=== PATIENT | female | born 1960 | race Caucasian/White ===

== ENCOUNTER 2016-12-10 08:05 | Outpatient (CLI) | payer OTHER | END 2016-12-10 08:06 | disposition home or self-care (01) | DX: Z00.00 Encounter for general adult medical examination without abnormal findings (principal); E55.9 Vitamin D deficiency, unspecified; Z79.899 Other long term (current) drug therapy; E78.2 Mixed hyperlipidemia ==

== ENCOUNTER 2016-12-27 09:10 | Outpatient (CLI) | payer OTHER | END 2016-12-27 09:11 | disposition home or self-care (01) | DX: Z12.31 Encounter for screening mammogram for malignant neoplasm of breast (principal) ==

== ENCOUNTER 2017-01-04 17:12 | Emergency (ER) | payer OTHER ==
[2017-01-04 17:31] VITALS: BP 138/76
[2017-01-04] MEDS ORDERED: oxyCOD/ACETAMIN 5 MG/325 MG TABLET PO STA (17:42)
[2017-01-04] MEDS ORDERED: HYDROcod/ACETAM 5/325 MG TABLET ONE (17:43)
--- NOTE | 2017-01-04 17:43 | ED Physician Documentation ---
History of Present Illness - Stated complaint Stated Complaint: L FOOT PX - Chief complaint Chief Complaint: General - History obtained from History obtained from: Patient - History of Present Illness Timing: Today (She has diabetic neuropathy, starting today she complains of pain without specific trauma to the medial foot, first metatarsal and forefoot area. It hurts to walk and bear weight.) Review of Systems Constitutional: denies: Fever, Chills GI: denies: Abdominal Pain, Nausea, Vomiting Skin: reports: Reviewed and negative PD PAST MEDICAL HISTORY - Past Medical History Cardiovascular: Hypertension, High cholesterol Respiratory: None Neuro: Peripheral neuropathy Endocrine/Autoimmune: Type 2 diabetes GI: None HOMEOPATHIC DOCTOR: None : None HEENT: None Psych: Depression, Anxiety, Post traumatic stress disorder Musculoskeletal: Osteoarthritis, Chronic back pain Derm: None - Past Surgical History Past Surgical History: Yes General: Cholecystectomy Ortho: Other /HOMEOPATHIC DOCTOR: section, Tubal ligation, Hysterectomy HEENT: Tonsil/Adenoidectomy - Present Medications Home Medications: Ambulatory Orders Medication Instructions Recorded Confirmed Insulin Glargine,Hum.rec.anlog 46 - 60 units SQ QPM 01/25/16 01/04/17 [Lantus] Insulin Lispro [Humalog Kwikpen 2 - 14 unit SQ TIDWM 06/28/16 01/04/17 U-100] Lisinopril 10 mg PO DAILY 01/04/17 01/04/17 Oxycodone HCl/Acetaminophen 1 - 2 tab PO Q4H PRN #10 tablet 01/04/17 [Percocet 5-325 mg Tablet] Simvastatin 10 mg PO DAILY 01/04/17 01/04/17 buPROPion [Wellbutrin Xl] 150 mg PO DAILY 01/04/17 01/04/17 - Allergies Allergies/Adverse Reactions: Allergies Allergy/AdvReac Type Severity Reaction Status Date / Time cefaclor [From Ceclor] Allergy Severe Unknown Verified 08/08/16 15:12 cephalexin monohydrate * Allergy Unknown Verified 08/08/16 15:12 [From Keflex] codeine Allergy Unknown Verified 08/08/16 15:12 hydrocodone bitartrate * Allergy Unknown Verified 08/08/16 15:12 [From Vicodin] Penicillins Allergy Unknown Verified 08/08/16 15:12 Tetanus Vaccines and Toxoid Allergy Respiratory Verified 08/08/16 15:12 [Tetanus Vaccines & Toxoid] hydromorphone HCl * AdvReac Unknown Verified 08/08/16 15:12 [From Dilaudid] - Social History Does the pt smoke?: Yes Smoking Status: Current some day smoker Does the pt drink ETOH?: No Does the pt have substance abuse?: No - Immunizations Immunizations are current?: No - POLST Patient has POLST: No PD ED PE NORMAL - Vitals Vital signs reviewed: Yes - General General: Alert and oriented X 3, No acute distress - Extremities Extremities: Other (Foot is warm and well perfused without evidence of infection or cellulitis. There is mild tenderness in the area of the mid forefoot and proximal second metatarsal or so without obvious deformity.) - Neuro Neuro: Alert and oriented X 3, Normal speech - Psych Psych: Normal mood, Normal affect Results - Vitals Vitals: Vital Signs - 24 hr 01/04/17 17:28 Temperature 37.0 C Heart Rate 97 Respiratory 16 Rate Blood Pressure 138/76 H O2 Saturation 96 Oxygen O2 Source Room air - Rads (name of study) L foot 3v Radiology: EMP read contemporaneously (normal) PD MEDICAL DECISION MAKING - ED course ED course: 56-year-old woman presents with acute right foot pain, no evidence of abnormality on x-ray. No evidence of infection clinically. She does have diabetic neuropathy, seems atypical for her flare, could have sprained it without memory of it?. Departure - Departure Disposition: 01 Home, Self Care Clinical Impression: Right foot pain Diabetic neuropathy Qualifiers: Diabetes mellitus type: type 2 Diabetes mellitus complication detail: diabetic polyneuropathy Qualified Code(s): E11.42 - Type 2 diabetes mellitus with diabetic polyneuropathy Condition: Good Record reviewed to determine appropriate education?: Yes Instructions: ED Acute Pain [facility] Follow-Up: Ashwini Cabrera DPM [Provider Admit Priv/Credential] - Within 1 week Prescriptions: Oxycodone HCl/Acetaminophen [Percocet 5-325 mg Tablet] 1 - 2 tab PO Q4H PRN #10 tablet PRN Reason: Pain Comments: Your blood pressure was elevated today on check in to the emergency department. This does not mean that you have hypertension, it is a common phenomenon to check into the emergency department and have elevated blood pressure. I recommend that you see your primary care physician within the week to have it rechecked when you're feeling better.
[2017-01-04] MEDS ORDERED: oxyCOD/ACETAMIN 5 MG/325 MG TABLET PO ONE (17:45)
--- NOTE | 2017-01-04 18:12 | XRAY Preliminary Report ---
Exam: XR Foot 3 View LT IMPRESSION: 1. Soft tissue swelling. 2. Other chronic findings. [facility] SITE ID: [id number]
--- NOTE | 2017-01-04 18:16 | XRAY Report ---
EXAM: LEFT FOOT RADIOGRAPHY EXAM DATE: 01/04/2017 05:57 PM. CLINICAL HISTORY: Foot pain. COMPARISON: 12/11/2015. TECHNIQUE: 3 views. FINDINGS: Bones: Small plantar and tiny posterior calcaneal spurs. No definite fracture or other bone lesion. Joints: Moderate degenerative changes at the first TMT level. Soft Tissues: Generalized soft tissue swelling. IMPRESSION: 1. Soft tissue swelling. 2. Chronic findings. [facility] Referring Provider Line: [phone] SITE ID: [id number]
== END 2017-01-04 18:29 | disposition home or self-care (01) ==
LOC: ED 17:12
DX: M79.671 Pain in right foot (principal); E11.42 Type 2 diabetes mellitus with diabetic polyneuropathy; Z79.4 Long term (current) use of insulin; I10 Essential (primary) hypertension; M19.90 Unspecified osteoarthritis, unspecified site; E78.00 Pure hypercholesterolemia, unspecified; F17.200 Nicotine dependence, unspecified, uncomplicated
CPT/HCPCS: 73630; 99283; A9270

== ENCOUNTER 2017-01-06 08:00 | Outpatient (CLI) | payer OTHER ==
[2017-01-06 10:00] LABS: BASOPHILS # (AUTO) 0.1 10^3/uL (0.0-0.1); BASOPHILS % (AUTO) 1.1 %; EOSINOPHILS # (AUTO) 0.2 10^3/uL (0.0-0.7); EOSINOPHILS % (AUTO) 1.7 %; HGB - HEMOGLOBIN 14.6 g/dL (12.0-16.0); LYMPHOCYTES % (AUTO) 31.8 %; MEAN CORPUSCULAR HEMOGLOBIN 29.3 pg (27.0-31.0); MEAN CORPUSCULAR HGB CONC 33.8 g/dL (32.0-36.0); MEAN CORPUSCULAR VOLUME 86.7 fL (81.0-99.0); MEAN PLATELET VOLUME 9.3 fL (7.9-10.8); MONOCYTES # (AUTO) 0.8 10^3/uL (0.0-1.0); NEUTROPHILS # (AUTO) 7.4 10^3/uL (1.5-6.6); NEUTROPHILS % (AUTO) 59.4 %; RED BLOOD COUNT 4.96 10^6/uL (4.20-5.40); RED CELL DISTRIBUTION WIDTH 14.1 % (12.0-15.0); UNCORRECTED WHITE BLOOD COUNT 12.5 x10^3/uL; WHITE BLOOD COUNT 12.5 x10^3/uL (4.8-10.8)
== END 2017-01-06 08:01 | disposition home or self-care (01) ==
LOC: LAB.R 08:00
PROVIDERS: ATTEND Physician Assistant Medical
DX: M79.672 Pain in left foot (principal); R60.9 Edema, unspecified
CPT/HCPCS: 84550; 85025; 85651; 86140

== ENCOUNTER 2017-01-31 06:08 | Day surgery (SDC) | payer OTHER ==
[2017-01-31] MEDS ORDERED: LACTATED RINGERS 1,000 ML IV ONE (07:11)
[2017-01-31] MEDS ORDERED: ONDANSETRON 4 MG/2 ML VIAL IVP ONE (07:46)
[2017-01-31] MEDS ORDERED: MIDAZOLAM 2 MG/2 ML VIAL IVP ONE (07:46)
[2017-01-31] MEDS ORDERED: fentaNYL 100 MCG/2 ML VIAL IVP ONE (07:46)
[2017-01-31 08:55] VITALS: BP 117/68
== END 2017-01-31 06:09 | disposition home or self-care (01) ==
LOC: SDS 06:08
PROVIDERS: ATTEND Surgery
PROC: 0DBN8ZZ Excision of Sigmoid Colon, Via Natural or Artificial Opening Endoscopic (ICD-10-PCS; principal; 2017-01-31 07:30)
DX: Z12.11 Encounter for screening for malignant neoplasm of colon (principal); D12.5 Benign neoplasm of sigmoid colon; K64.8 Other hemorrhoids; K57.30 Diverticulosis of large intestine without perforation or abscess without bleeding; E11.9 Type 2 diabetes mellitus without complications; I10 Essential (primary) hypertension; F17.210 Nicotine dependence, cigarettes, uncomplicated; E66.9 Obesity, unspecified; Z68.42 Body mass index [BMI] 45.0-49.9, adult; F32.9 Major depressive disorder, single episode, unspecified; F41.9 Anxiety disorder, unspecified
CPT/HCPCS: 45385; J7120; 88305

== ENCOUNTER 2017-03-05 12:39 | Outpatient (CLI) | payer OTHER ==
--- NOTE | 2017-03-05 18:09 | XRAY Report ---
TWO VIEW THORACIC SPINE: 03/05/2017 CLINICAL INDICATION: Pain. Frontal and lateral views of the thoracic spine demonstrate degenerative disk disease, with minimal d extroscoliosis. There is no evidence of compression fracture. No paraspinal hematoma is seen. IMPRESSION: DEGENERATIVE CHANGES, WITH MINIMAL DEGENERATIVE DEXTROSCOLIOSIS. JOB #: [id number] EXT JOB #:[id number]
== END 2017-03-05 12:40 | disposition home or self-care (01) ==
LOC: DI 12:39
PROVIDERS: ATTEND Physician Assistant Medical
DX: M51.34 Other intervertebral disc degeneration, thoracic region (principal); M41.54 Other secondary scoliosis, thoracic region
CPT/HCPCS: 72070

== ENCOUNTER 2017-03-11 07:56 | Outpatient (CLI) | payer OTHER ==
[2017-03-11 14:33] LABS: BASOPHILS # (AUTO) 0.1 10^3/uL (0.0-0.1); BASOPHILS % (AUTO) 0.8 %; EOSINOPHILS # (AUTO) 0.3 10^3/uL (0.0-0.7); EOSINOPHILS % (AUTO) 2.1 %; HCT - HEMATOCRIT 45.2 % (37.0-47.0); HGB - HEMOGLOBIN 14.8 g/dL (12.0-16.0); LYMPHOCYTES % (AUTO) 33.7 %; MEAN CORPUSCULAR HEMOGLOBIN 29.1 pg (27.0-31.0); MEAN CORPUSCULAR HGB CONC 32.8 g/dL (32.0-36.0); MEAN CORPUSCULAR VOLUME 88.8 fL (81.0-99.0); MEAN PLATELET VOLUME 9.9 fL (7.9-10.8); MONOCYTES # (AUTO) 0.9 10^3/uL (0.0-1.0); MONOCYTES % (AUTO) 5.7 %; NEUTROPHILS # (AUTO) 8.6 10^3/uL (1.5-6.6); NEUTROPHILS % (AUTO) 57.7 %; NUCLEATED RED BLOOD CELLS AUTO 0.1 /100WBC; RED CELL DISTRIBUTION WIDTH 14.1 % (12.0-15.0); UNCORRECTED WHITE BLOOD COUNT 14.9 x10^3/uL; WHITE BLOOD COUNT 14.9 x10^3/uL (4.8-10.8)
[2017-03-11 15:10] LABS: HEMOGLOBIN A1C 1.42 g/dL
== END 2017-03-11 07:57 | disposition home or self-care (01) ==
LOC: LAB.R 07:56
PROVIDERS: ATTEND Physician Assistant Medical
DX: E11.65 Type 2 diabetes mellitus with hyperglycemia (principal); D72.820 Lymphocytosis (symptomatic); Z79.899 Other long term (current) drug therapy
CPT/HCPCS: 82947; 83036; 85025

== ENCOUNTER 2017-04-30 08:01 | Outpatient (CLI) | payer OTHER ==
[2017-04-30 21:28] LABS: BASOPHILS # (AUTO) 0.1 10^3/uL (0.0-0.1); BASOPHILS % (AUTO) 0.7 %; EOSINOPHILS # (AUTO) 0.2 10^3/uL (0.0-0.7); EOSINOPHILS % (AUTO) 1.7 %; HCT - HEMATOCRIT 48.4 % (37.0-47.0); HGB - HEMOGLOBIN 15.4 g/dL (12.0-16.0); LYMPHOCYTES # (AUTO) 4.8 10^3/uL (1.5-3.5); LYMPHOCYTES % (AUTO) 36.9 %; MEAN CORPUSCULAR HEMOGLOBIN 28.7 pg (27.0-31.0); MEAN CORPUSCULAR HGB CONC 31.9 g/dL (32.0-36.0); MEAN PLATELET VOLUME 10.3 fL (7.9-10.8); MONOCYTES # (AUTO) 0.9 10^3/uL (0.0-1.0); MONOCYTES % (AUTO) 6.9 %; NEUTROPHILS % (AUTO) 53.8 %; NUCLEATED RED BLOOD CELLS AUTO 0.1 /100WBC; RED BLOOD COUNT 5.38 10^6/uL (4.20-5.40); RED CELL DISTRIBUTION WIDTH 14.4 % (12.0-15.0)
[2017-04-30 21:51] LABS: HEMOGLOBIN A1C 1.45 g/dL
== END 2017-04-30 08:02 | disposition home or self-care (01) ==
LOC: LAB.R 08:01
PROVIDERS: ATTEND Physician Assistant Medical
DX: E11.65 Type 2 diabetes mellitus with hyperglycemia (principal); D72.820 Lymphocytosis (symptomatic); Z79.899 Other long term (current) drug therapy
CPT/HCPCS: 82947; 83036; 85025

== ENCOUNTER 2017-09-04 08:10 | Outpatient (CLI) | payer OTHER ==
[2017-09-04 14:50] LABS: HB2 TOTAL 16.3 g/dL; HEMOGLOBIN A1C 1.33 g/dL; HEMOGLOBIN A1C % 9.6 % (4.6-6.2)
== END 2017-09-04 08:11 | disposition home or self-care (01) ==
LOC: LAB.R 08:10
PROVIDERS: ATTEND Physician Assistant Medical
DX: E11.40 Type 2 diabetes mellitus with diabetic neuropathy, unspecified (principal); Z79.899 Other long term (current) drug therapy
CPT/HCPCS: 82947; 83036

== ENCOUNTER 2017-12-16 08:00 | Outpatient (CLI) | payer OTHER ==
[2017-12-16 13:02] LABS: BASOPHILS # (AUTO) 0.1 10^3/uL (0.0-0.1); BASOPHILS % (AUTO) 0.6 %; EOSINOPHILS # (AUTO) 0.1 10^3/uL (0.0-0.7); EOSINOPHILS % (AUTO) 0.8 %; LYMPHOCYTES # (AUTO) 4.2 10^3/uL (1.5-3.5); LYMPHOCYTES % (AUTO) 29.4 %; MEAN CORPUSCULAR HEMOGLOBIN 28.6 pg (27.0-31.0); MEAN CORPUSCULAR HGB CONC 33.3 g/dL (32.0-36.0); MEAN CORPUSCULAR VOLUME 86.1 fL (81.0-99.0); MEAN PLATELET VOLUME 9.8 fL (7.9-10.8); MONOCYTES % (AUTO) 6.8 %; NEUTROPHILS # (AUTO) 8.8 10^3/uL (1.5-6.6); NEUTROPHILS % (AUTO) 62.4 %; PLT - PLATELET COUNT 272 10^3/uL (130-450); RED BLOOD COUNT 5.24 10^6/uL (4.20-5.40); RED CELL DISTRIBUTION WIDTH 13.9 % (12.0-15.0); WHITE BLOOD COUNT 14.2 x10^3/uL (4.8-10.8)
[2017-12-16 13:16] LABS: ALBUMIN 3.6 g/dL (3.2-5.5); ALKALINE PHOSPHATASE 68 IU/L (42-121); ALT ALANINE AMINOTRANSFERASE 17 IU/L (10-60); AST ASPARTATE AMINOTRANSFERASE 18 IU/L (10-42); BILIRUBIN,TOTAL < 0.2 mg/dL (0.2-1.0); BUN - BLOOD UREA NITROGEN 10 mg/dL (6-20); CALCIUM 9.2 mg/dL (8.5-10.3); CARBON DIOXIDE - CO2 27 mmol/L (21-32); CHLORIDE 99 mmol/L (101-111); CREATININE 0.7 mg/dL (0.4-1.0); CRP - C-REACTIVE PROTEIN 2.1 mg/dL (0-1.0); GFR - MDRD 87 (>89); GLUCOSE 232 mg/dL (70-100); SODIUM 135 mmol/L (135-145); TOTAL PROTEIN 7.1 g/dL (6.7-8.2)
== END 2017-12-16 08:01 ==
LOC: LAB.R 08:00
PROVIDERS: ATTEND Physician Assistant Medical
DX: M54.2 Cervicalgia (principal)
CPT/HCPCS: 80053; 85025; 85651; 86140

== ENCOUNTER 2017-12-18 16:51 | Outpatient (CLI) | payer OTHER ==
[2017-12-18] MEDS ORDERED: IOPAMIDOL-300 100 ML VIAL ONE (17:07)
[2017-12-18] MEDS ORDERED: IOPAMIDOL-300 100 ML VIAL IVP ONE (18:26)
--- NOTE | 2017-12-18 19:21 | CT Report ---
EXAM: CT SOFT TISSUE NECK WITH CONTRAST. EXAM DATE: 12/18/2017 05:40 PM. HISTORY: Left-sided neck pain, dysphagia, previous history of cellulitis COMPARISONS: CT maxillofacial 08/08/2016 TECHNIQUE: Routine soft tissue neck CT protocol. Reconstructions: Coronal and sagittal. IV contrast: 80 cc of Isovue-300. In accordance with CT protocol optimization, one or more of the following dose reduction techniques w ere utilized for this exam: automated exposure control, adjustment of mA and/or KV based on patient s ize, or use of iterative reconstructive technique. FINDINGS: Visualized Intracranial Contents: Unremarkable. Orbits: Symmetric and unremarkable. Sinuses: Visualized paranasal sinuses and mastoid air cells are clear. Oral cavity and tongue: The visualized oral cavity is unremarkable. The floor of the mouth is symmetr ic. Pharynx : Pharyngeal mucosa is unremarkable. The infratemporal fossa, parapharyngeal spaces, and retr opharyngeal space are unremarkable. The base of the tongue is symmetric and unremarkable. The airway is patent. Larynx: Larynx and supraglottic airway are patent without mass lesion. Vocal cords are symmetric. The visualized trachea is unremarkable. Parotid and Submandibular Glands: Symmetric and unremarkable. Lymph Nodes: No enlarged lymph nodes are identified in the cervical, supraclavicular, and visualized superior mediastinal regions. Soft tissues: Soft tissues are unremarkable. No mass lesion or abnormal enhancement. Vascular Structures: Unremarkable. Thyroid Gland: Normal. Lung: A 7 mm right upper lobe pulmonary nodule is seen (series 3 image 115), slightly more inferiorly there is a 5 mm pulmonary nodule (series 3 image 122). The visualized lung apices are otherwise duane r. Bones: No evidence of acute fracture or malalignment. There are mild to moderate degenerative changes . Moderate anterior osteophytosis from C5-C7 level. Other: Poor dentition is noted with multiple absent teeth. IMPRESSION: 1. No CT evidence of acute abnormality. No evidence of soft tissue adenopathy, abscess, or mass. 2. A 7 mm right upper lobe pulmonary nodule is seen (series 3 image 115), slightly more inferiorly th ere is a 5 mm pulmonary nodule (series 3 image 122). Recommend follow-up as per Fleischner Society cr iteria (see below). 3. Moderate anterior osteophytosis from C5-C7 level. This could result in globus sensation. 4. Poor dentition is noted with multiple absent teeth. Recommend follow-up of the described nodule(s) according to the following guidelines: Fleischner Society Recommendations 2017 MacMahon et al. Radiology 2017 Solid Nodules-Low Risk Patients: <6 mm (single or multiple) - No routine follow-up* 6-8 mm (single) -CT at 6-12 months, then consider CT at 18-24 months 6-8mm (multiple) -CT at 3-6 months, then consider at CT 18-24 months >8 mm (single) -Consider CT, PET/CT, or tissue sampling at 3 months >8 mm (multiple) -CT at 3-6 months, then consider CT at 18-24 months Solid Nodules-High Risk Patients: <6 mm (single or multiple) -Optional CT at 12 months* 6-8 mm (single) -CT at 6-12 months, then CT at 18-24 months 6-8mm (multiple) -CT at 3-6 months, then CT at 18-24 months >8 mm (single) -Consider CT, PET/CT, or tissue sampling at 3 months >8 mm (multiple) -CT at 3-6 months, then at 18-24 months *Nodules < 6mm do not require routine follow-up, but suspicious nodule morphology, upper lobe locatio n, or both may warrant 12 month follow-up Consider follow-up at 2 and 4 years for certain suspicious nodules <6mm. If solid component develo ps or growth, consider resection. [facility] Referring Provider Line: [phone] SITE ID: [id number]
== END 2017-12-18 16:52 | disposition home or self-care (01) ==
LOC: DI 16:51
PROVIDERS: ATTEND Physician Assistant Medical
DX: R91.8 Other nonspecific abnormal finding of lung field (principal); M47.892 Other spondylosis, cervical region
CPT/HCPCS: 70491; Q9967

== ENCOUNTER 2018-02-09 12:18 | Outpatient (CLI) | payer OTHER ==
[2018-02-09 12:48] LABS: ALBUMIN 3.5 g/dL (3.2-5.5); ALBUMIN/GLOBULIN RATIO 0.9 (1.0-2.2); BILIRUBIN,TOTAL 0.4 mg/dL (0.2-1.0); CREATININE 0.6 mg/dL (0.4-1.0); TOTAL PROTEIN 7.3 g/dL (6.7-8.2)
== END 2018-02-09 12:19 | disposition home or self-care (01) ==
LOC: LAB 12:18
PROVIDERS: ATTEND Physician Assistant Medical
DX: R00.0 Tachycardia, unspecified (principal)
CPT/HCPCS: 36415; 80053; 84443; 84484

== ENCOUNTER 2018-04-02 18:10 | Emergency (ER) | payer OTHER ==
[2018-04-02 18:20] VITALS: BP 162/83
[2018-04-02] MEDS ORDERED: MELOXICAM 7.5 MG TABLET PO STA (18:22)
--- NOTE | 2018-04-02 18:23 | ED Physician Documentation ---
PD HPI LOWER EXT INJURY - Stated complaint Stated Complaint: L FOOT PX - Chief complaint Chief Complaint: Ext Problem - History obtained from History obtained from: Patient - History of Present Illness PD HPI LOW EXT INJURY LOCATION: Left, Foot Type of injury: Other (b/c of walking a lot has pain bottom of foot. No specific injury.) Review of Systems Constitutional: denies: Fever, Chills Nose: reports: Reviewed and negative Cardiac: reports: Reviewed and negative Respiratory: reports: Reviewed and negative PD PAST MEDICAL HISTORY - Past Medical History Cardiovascular: Hypertension, High cholesterol Respiratory: None Endocrine/Autoimmune: Type 2 diabetes GI: None OFFICE ADMINISTRATION INSTRUCTOR: None : None HEENT: None Psych: Depression, Anxiety, Post traumatic stress disorder Musculoskeletal: Osteoarthritis, Chronic back pain Derm: None - Past Surgical History Past Surgical History: Yes General: Cholecystectomy Ortho: Other /OFFICE ADMINISTRATION INSTRUCTOR: section, Tubal ligation, Hysterectomy HEENT: Tonsil/Adenoidectomy - Present Medications Home Medications: Ambulatory Orders Medication Instructions Recorded Confirmed Insulin Glargine,Hum.rec.anlog 52 units SQ QPM 01/25/16 12/22/17 [Lantus] Insulin Lispro [Humalog Kwikpen 2 - 14 unit SQ TIDWM 06/28/16 12/22/17 U-100] Lisinopril 10 mg PO DAILY 01/04/17 12/22/17 buPROPion [Wellbutrin Xl] 150 mg PO DAILY 01/04/17 12/22/17 Atorvastatin [Lipitor] 10 mg PO DAILY 07/07/17 12/22/17 Meloxicam [Mobic] 7.5 mg PO BIDWM PRN #15 tablet 04/02/18 - Allergies Allergies/Adverse Reactions: Allergies Allergy/AdvReac Type Severity Reaction Status Date / Time cefaclor [From Ceclor] Allergy Severe Anaphylaxis Verified 04/02/18 18:17 cephalexin monohydrate * Allergy Severe Anaphylaxis Verified 04/02/18 18:17 [From Keflex] hydrocodone bitartrate * Allergy Severe Anaphylaxis Verified 04/02/18 18:17 [From Vicodin] codeine Allergy Unknown Verified 04/02/18 18:17 Penicillins Allergy Unknown Verified 04/02/18 18:17 Tetanus Vaccines and Toxoid Allergy Respiratory Verified 04/02/18 18:17 [Tetanus Vaccines & Toxoid] hydromorphone HCl * AdvReac Unknown Verified 04/02/18 18:17 [From Dilaudid] tuberculin,PPD,multi-puncture AdvReac Edema Verified 04/02/18 18:17 - Social History Does the pt smoke?: Yes Smoking Status: Current some day smoker Does the pt drink ETOH?: No Does the pt have substance abuse?: No - Immunizations Immunizations are current?: No - POLST Patient has POLST: No PD ED PE NORMAL - Vitals Vital signs reviewed: Yes - General General: Alert and oriented X 3, No acute distress - Extremities Extremities: Other (TTP anterior calcaneus > plantar fascia.) - Neuro Neuro: Alert and oriented X 3, Normal speech Results - Vitals Vitals: Vital Signs - 24 hr 04/02/18 18:15 Temperature 35.5 C L Heart Rate 91 Respiratory 18 Rate Blood Pressure 162/83 H O2 Saturation 95 Oxygen O2 Source Room air - Rads (name of study) L foot 3v Radiology: EMP read contemporaneously (Moderate midfoot degenerative disease and soft tissue swelling stable from last year.) PD MEDICAL DECISION MAKING - Sepsis Event Vital Signs: Vital Signs - 24 hr 04/02/18 18:15 Temperature 35.5 C L Heart Rate 91 Respiratory 18 Rate Blood Pressure 162/83 H O2 Saturation 95 Oxygen O2 Source Room air Departure - Departure Disposition: 01 Home, Self Care Clinical Impression: Plantar fasciitis of left foot Condition: Good Record reviewed to determine appropriate education?: Yes Instructions: ED Plantar Fasciitis Follow-Up: Ashwini Cabrera DPM [Provider Admit Priv/Credential] - Prescriptions: Meloxicam [Mobic] 7.5 mg PO BIDWM PRN #15 tablet PRN Reason: Pain Comments: Your blood pressure was elevated today on check into the emergency department. This does not mean that you have hypertension, it is a common phenomenon to come to the emergency department and have elevated blood pressure. I recommend that you see your primary care physician within the week to have it rechecked when you are feeling better.
--- NOTE | 2018-04-02 18:50 | XRAY Report ---
Procedure Date: 04/02/2018 Accession Number: [id number] / [id number] Procedure: XR - Foot 3 View LT CPT Code: FULL RESULT: EXAM: LEFT FOOT RADIOGRAPHY EXAM DATE: 04/02/2018 06:41 PM. CLINICAL HISTORY: Foot pain. COMPARISON: FOOT 3 VIEW LT 01/04/2017. TECHNIQUE: 3 views. FINDINGS: Bones: No fracture or focal bony lesion. Joints: No evidence of dislocation. There is relatively stable medial tarsometatarsal degenerative disease. Soft Tissues: There is mild midfoot soft tissue swelling. IMPRESSION: 1. No fracture or dislocation. 2. There is moderate midfoot degenerative disease and soft tissue swelling. This is relatively stable. [facility]
== END 2018-04-02 19:05 | disposition home or self-care (01) ==
LOC: ED 18:10
DX: M72.2 Plantar fascial fibromatosis (principal); I10 Essential (primary) hypertension; E78.00 Pure hypercholesterolemia, unspecified; E10.9 Type 1 diabetes mellitus without complications; Z79.4 Long term (current) use of insulin; F17.200 Nicotine dependence, unspecified, uncomplicated
CPT/HCPCS: 73630; 99283; A9270

== ENCOUNTER 2018-08-08 17:51 | Outpatient (CLI) | payer OTHER ==
--- NOTE | 2018-08-09 16:57 | MRI Report ---
Reason: FOOT PAIN,LEFT,EDEMA Procedure Date: 08/08/2018 Accession Number: [id number] / [id number] Procedure: MRI - Foot LT W/O CPT Code: FULL RESULT: EXAM: LEFT ANKLE/HINDFOOT MRI WITHOUT CONTRAST. EXAM DATE: 08/08/2018 06:54 PM. CLINICAL HISTORY: Left foot pain and edema. COMPARISON: 06/04/2018 radiograph. TECHNIQUE: Multiplanar, multisequence T1-weighted and fluid-sensitive sequences of the ankle/hindfoot without contrast. Other: None. FINDINGS: Bones: Marrow edema in the first and second cuneiforms and the proximal portions of the first and second metatarsals is reactive to the severe joint space narrowing, periarticular cyst formation, and some osteophyte formation at those joint spaces. Findings are consistent with osteoarthritis. Articular Cartilage: The articular cartilage in the first and second tarsometatarsal joints is severely thinned. Ligaments: The anterior and posterior tibiofibular, anterior and posterior talofibular, and calcaneofibular ligaments are intact. The deep and superficial deltoid and spring ligaments are intact. Anterior Tendons: The tibialis anterior, extensor hallucis longus, and extensor digitorum longus tendons are unremarkable. Medial Tendons: The tibialis posterior, flexor digitorum longus, and flexor hallucis longus tendons are unremarkable. Lateral Tendons: The peroneus brevis and longus are unremarkable. Achilles Tendon: The Achilles tendon is unremarkable. Musculature: No edema or fatty atrophy. Other: No effusions. The contents of the sinus tarsi and tarsal tunnel are unremarkable. No plantar fasciitis. Subcutaneous edema overlies the dorsum of the foot. IMPRESSION: 1. Osteoarthritis of the first and second tarsometatarsal joints. [facility] MUSCULOSKELETAL RADIOLOGY SECTION
== END 2018-08-08 17:52 | disposition home or self-care (01) ==
LOC: DI 17:51
PROVIDERS: ATTEND Physician Assistant Medical
DX: M19.072 Primary osteoarthritis, left ankle and foot (principal); R60.0 Localized edema

== ENCOUNTER 2018-10-01 08:30 | Outpatient (CLI) | payer OTHER ==
[2018-10-01 14:50] LABS: BILIRUBIN,URINE NEGATIVE (NEGATIVE); GLUCOSE, URINE (UA) NEGATIVE (NEGATIVE); KETONES,URINE (UA) 15 mg/dL (NEGATIVE); LEUKOCYTE ESTERASE, URINE NEGATIVE (NEGATIVE); NITRITE,URINE NEGATIVE (NEGATIVE); OCCULT BLOOD,URINE NEGATIVE (NEGATIVE); PROTEIN,URINE NEGATIVE (NEGATIVE); UROBILINOGEN,URINE 0.2 (NORMAL) E.U./dL (NORMAL)
[2018-10-01 14:55] LABS: CLARITY,URINE CLEAR (CLEAR)
[2018-10-01 15:03] LABS: ALBUMIN 3.7 g/dL (3.2-5.5); ALKALINE PHOSPHATASE 70 IU/L (42-121); ALT ALANINE AMINOTRANSFERASE 37 IU/L (10-60); AST ASPARTATE AMINOTRANSFERASE 44 IU/L (10-42); BILIRUBIN,TOTAL 0.9 mg/dL (0.2-1.0); BUN - BLOOD UREA NITROGEN 13 mg/dL (6-20); CALCIUM 9.2 mg/dL (8.5-10.3); CARBON DIOXIDE - CO2 26 mmol/L (21-32); CHLORIDE 99 mmol/L (101-111); CHOL/HDL RATIO 6.6 (<4.4); CHOLESTEROL 199 mg/dL; CREATININE 0.7 mg/dL (0.4-1.0); GFR - MDRD 87 (>89); GLUCOSE 204 mg/dL (70-100); HDL CHOLESTEROL 30 mg/dL; LDL CHOLESTEROL,CALCULATED 140 mg/dL; LDL/HDL RATIO 4.7 (<4.4); SODIUM 136 mmol/L (135-145); TOTAL PROTEIN 7.3 g/dL (6.7-8.2); VLDL CHOLESTEROL 29 mg/dL
[2018-10-01 15:10] LABS: BASOPHILS # (AUTO) 0.1 10^3/uL (0.0-0.1); BASOPHILS % (AUTO) 0.6 %; EOSINOPHILS # (AUTO) 0.2 10^3/uL (0.0-0.7); EOSINOPHILS % (AUTO) 1.7 %; HGB - HEMOGLOBIN 15.1 g/dL (12.0-16.0); LYMPHOCYTES # (AUTO) 3.3 10^3/uL (1.5-3.5); LYMPHOCYTES % (AUTO) 32.7 %; MEAN CORPUSCULAR HEMOGLOBIN 29.1 pg (27.0-31.0); MEAN CORPUSCULAR HGB CONC 33.7 g/dL (32.0-36.0); MEAN CORPUSCULAR VOLUME 86.3 fL (81.0-99.0); MEAN PLATELET VOLUME 9.1 fL (7.9-10.8); MONOCYTES % (AUTO) 9.9 %; NEUTROPHILS # (AUTO) 5.6 10^3/uL (1.5-6.6); NEUTROPHILS % (AUTO) 55.1 %; PLT - PLATELET COUNT 265 10^3/uL (130-450); RED BLOOD COUNT 5.18 10^6/uL (4.20-5.40); WHITE BLOOD COUNT 10.1 x10^3/uL (4.8-10.8)
[2018-10-01 15:59] LABS: HEMOGLOBIN A1C 1.5 g/dL; HEMOGLOBIN A1C % 10.2 % (4.6-6.2)
== END 2018-10-01 23:59 | disposition home or self-care (01) ==
LOC: LAB.R 08:30
PROVIDERS: ATTEND Physician Assistant Medical
DX: Z00.00 Encounter for general adult medical examination without abnormal findings (principal); E11.40 Type 2 diabetes mellitus with diabetic neuropathy, unspecified; E55.9 Vitamin D deficiency, unspecified; Z79.899 Other long term (current) drug therapy; E78.49 Other hyperlipidemia
CPT/HCPCS: 80053; 80061; 81001; 81003; 82043; 82306; 83036; 83721; 84443; 85025; 87086

== ENCOUNTER 2018-11-01 11:17 | Outpatient (CLI) | payer OTHER ==
--- NOTE | 2018-11-02 08:37 | Mammography Report ---
Reason: ROUTINE MAMMO Procedure Date: 11/01/2018 Accession Number: [id number] / [id number] Procedure: DAVE - Screening Mammo w/[facility] CPT Code: FULL RESULT: EXAM: Screening Mammo w/[facility] DATE: 11/01/2018 11:49 AM CLINICAL HISTORY: Routine screening. No reported personal or family history of breast cancer. TECHNIQUE: Bilateral CC and MLO views were obtained. COMPARISON: 12/27/2016 through 07/05/2011 FINDINGS: The breasts demonstrate scattered fibroglandular densities bilaterally. Bilateral breasts: There are no suspicious masses, calcifications or areas of distortion. IMPRESSION: Negative examination RECOMMENDATION: Routine annual screening unless otherwise clinically indicated. BI-RADS CATEGORY 1: Negative STANDARD QUALIFYING STATEMENTS: 1. This examination was not reviewed with the aid of Computer-Aided Detection (CAD). 2. A negative or benign imaging report should not preclude biopsy if clinically suspicious findings are present. 3. Dense breasts may obscure an underlying neoplasm. 4. This examination was reviewed with the aid of 3D breast imaging (tomosynthesis).
== END 2018-11-01 11:18 | disposition home or self-care (01) ==
LOC: DI 11:17
PROVIDERS: ATTEND Physician Assistant Medical
DX: Z12.31 Encounter for screening mammogram for malignant neoplasm of breast (principal)
CPT/HCPCS: 77063; 77067

== ENCOUNTER 2018-11-19 08:17 | Outpatient (CLI) | payer OTHER ==
[2018-11-19 08:44] LABS: CALCIUM 9.3 mg/dL (8.5-10.3); CREATININE 0.7 mg/dL (0.4-1.0)
== END 2018-11-19 08:18 | disposition home or self-care (01) ==
LOC: LAB 08:17
PROVIDERS: ATTEND Internal Medicine
DX: E11.40 Type 2 diabetes mellitus with diabetic neuropathy, unspecified (principal)
CPT/HCPCS: 36415; 80048; 81599

== ENCOUNTER 2019-01-09 12:07 | Outpatient (CLI) | payer OTHER ==
[2019-01-09 12:47] LABS: HEMOGLOBIN A1C 1.64 g/dL; HEMOGLOBIN A1C % 10.5 % (4.6-6.2)
== END 2019-01-09 12:08 | disposition home or self-care (01) ==
LOC: LAB 12:07
PROVIDERS: ATTEND Nurse Practitioner
DX: E11.40 Type 2 diabetes mellitus with diabetic neuropathy, unspecified (principal)
CPT/HCPCS: 36415; 83036

== ENCOUNTER 2019-01-27 08:00 | Outpatient (CLI) | payer OTHER ==
[2019-01-27 13:03] LABS: HGB - HEMOGLOBIN 15.4 g/dL (12.0-16.0); MEAN CORPUSCULAR HEMOGLOBIN 29.1 pg (27.0-31.0); MEAN CORPUSCULAR VOLUME 88.1 fL (81.0-99.0); MEAN PLATELET VOLUME 9.7 fL (7.9-10.8); RED BLOOD COUNT 5.3 10^6/uL (4.20-5.40); RED CELL DISTRIBUTION WIDTH 13.5 % (12.0-15.0)
[2019-01-27 13:08] LABS: RHEUMATOID FACTOR NEGATIVE (Negative)
[2019-01-27 13:17] LABS: CRP - C-REACTIVE PROTEIN < 1.0 mg/dL (0-1.0)
[2019-01-29 13:25] LABS: ANA SCREEN NEGATIVE (NEGATIVE)
== END 2019-01-27 23:59 | disposition home or self-care (01) ==
LOC: LAB.WCP 08:00
PROVIDERS: ATTEND Family Medicine
DX: M79.672 Pain in left foot (principal); M19.072 Primary osteoarthritis, left ankle and foot
CPT/HCPCS: 36415; 84550; 85027; 85651; 86038; 86140; 86200; 86430

== ENCOUNTER 2019-03-24 15:17 | Outpatient (CLI) | payer OTHER ==
[2019-03-24 15:38] LABS: BASOPHILS # (AUTO) 0.1 10^3/uL (0.0-0.1); BASOPHILS % (AUTO) 0.5 %; EOSINOPHILS # (AUTO) 0.2 10^3/uL (0.0-0.7); EOSINOPHILS % (AUTO) 1.5 %; HGB - HEMOGLOBIN 15.8 g/dL (12.0-16.0); LYMPHOCYTES # (AUTO) 5.1 10^3/uL (1.5-3.5); LYMPHOCYTES % (AUTO) 38.7 %; MEAN CORPUSCULAR HEMOGLOBIN 28.3 pg (27.0-31.0); MEAN CORPUSCULAR HGB CONC 31.8 g/dL (32.0-36.0); MEAN CORPUSCULAR VOLUME 88.9 fL (81.0-99.0); MONOCYTES # (AUTO) 0.9 10^3/uL (0.0-1.0); MONOCYTES % (AUTO) 7.1 %; NEUTROPHILS # (AUTO) 6.8 10^3/uL (1.5-6.6); NEUTROPHILS % (AUTO) 51.8 %; PLT - PLATELET COUNT 252 10^3/uL (130-450); RED BLOOD COUNT 5.59 10^6/uL (4.20-5.40); RED CELL DISTRIBUTION WIDTH 13.6 % (12.0-15.0); WHITE BLOOD COUNT 13.1 x10^3/uL (4.8-10.8)
[2019-03-24 15:54] LABS: ALBUMIN 3.9 g/dL (3.2-5.5); ALBUMIN/GLOBULIN RATIO 1.1 (1.0-2.2); BILIRUBIN,TOTAL 0.4 mg/dL (0.2-1.0); CALCIUM 9.4 mg/dL (8.5-10.3); CREATININE 0.7 mg/dL (0.4-1.0); TOTAL PROTEIN 7.3 g/dL (6.7-8.2)
[2019-03-24 16:11] LABS: PLATELET ESTIMATE, MANUAL NORMAL (130-450,000) (NORMAL); PLATELET MORPHOLOGY NORMAL APPEARANCE (NORMAL); RBC MORPHOLOGY (MULTIPLE) NORMAL APPEARANCE (NORMAL)
[2019-03-24 16:12] LABS: DIFFERENTIAL COMMENT MANUAL=AUTO DIFF
[2019-03-24] MEDS ORDERED: IOVERSOL 320 50 ML VIAL PO ONE (16:31)
[2019-03-24] MEDS ORDERED: IOVERSOL 320 100 ML VIAL IVP ONE ×2 (16:31→16:50)
[2019-03-24] MEDS ORDERED: IOVERSOL 320 50 ML VIAL ONE ×2 (16:49→16:54)
--- NOTE | 2019-03-24 17:15 | CT Report ---
Reason: ABDOMINAL PAIN, RLQ Procedure Date: 03/24/2019 Accession Number: [id number] / [id number] Procedure: CT - Abdomen/Pelvis W CPT Code: FULL RESULT: EXAM: CT ABDOMEN AND PELVIS WITH CONTRAST. EXAM DATE: 03/24/2019 04:30 PM. CLINICAL HISTORY: Abdominal pain, right lower quadrant. COMPARISONS: ABDOMEN/PELVIS W/O 06/16/2014 9:41 AM. TECHNIQUE: Routine helical CT imaging was performed through the abdomen and pelvis. IV contrast: OPTI-320 100 mL. Enteric contrast: Yes. Reconstructions: Coronal and sagittal. In accordance with CT protocol optimization, one or more of the following dose reduction techniques were utilized for this exam: automated exposure control, adjustment of mA and/or KV based on patient size, or use of iterative reconstructive technique. FINDINGS: Lung bases: No acute findings. Liver: Diffuse fatty liver. Gallbladder: Status post cholecystectomy. Bile ducts: Unremarkable. Prominent periportal lymph node measuring 9 mm, unchanged. Pancreas: Fatty atrophy. Spleen: Unremarkable. Adrenals: Unremarkable. Kidneys: Unremarkable. Bowel: Normal appendix. A few descending colon and sigmoid colon diverticula without evidence for acute diverticulitis. No dilated bowel loops are seen. No free fluid or free air. Pelvis: The bladder and remaining pelvic organs appear unremarkable. Status post hysterectomy. Bilateral ovaries appear within normal limits. Vasculature: No acute findings. Bones: No acute bone findings. IMPRESSION: 1. Fatty liver. 2. Normal appendix. A few descending colon and sigmoid colon diverticula without evidence for acute diverticulitis. 3. No acute findings are seen. KING The call report notification system was initiated by Dr. Payal Guzman at 05:05 PM on 03/24/2019. The above call report findings were discussed with Ludmila Diop by Dr. Payal Guzman at 05:12 PM on 03/24/2019.
== END 2019-03-24 15:18 | disposition home or self-care (01) ==
LOC: DI 15:17
PROVIDERS: ATTEND Physician Assistant Medical
DX: K76.0 Fatty (change of) liver, not elsewhere classified (principal); K57.30 Diverticulosis of large intestine without perforation or abscess without bleeding; R10.31 Right lower quadrant pain
CPT/HCPCS: 36415; 74177; 80053; 83690; 85025; Q9967

== ENCOUNTER 2019-05-25 08:15 | Outpatient (CLI) | payer OTHER ==
[2019-05-25 08:48] LABS: ALBUMIN 3.7 g/dL (3.2-5.5); ALBUMIN/GLOBULIN RATIO 1.2 (1.0-2.2); BILIRUBIN,TOTAL 0.6 mg/dL (0.2-1.0); CALCIUM 9.1 mg/dL (8.5-10.3); CREATININE 0.7 mg/dL (0.4-1.0); TOTAL PROTEIN 6.9 g/dL (6.7-8.2)
[2019-05-25 09:02] LABS: HB2 TOTAL 15.7 g/dL; HEMOGLOBIN A1C 1.67 g/dL; HEMOGLOBIN A1C % 11.9 % (4.6-6.2)
== END 2019-05-25 08:16 | disposition home or self-care (01) ==
LOC: LAB 08:15
PROVIDERS: ATTEND Nurse Practitioner
DX: I10 Essential (primary) hypertension (principal); E78.5 Hyperlipidemia, unspecified; E11.40 Type 2 diabetes mellitus with diabetic neuropathy, unspecified
CPT/HCPCS: 36415; 80053; 83036

== ENCOUNTER 2019-06-18 10:47 | Outpatient (CLI) | payer OTHER ==
[2019-06-18 10:59] LABS: BASOPHILS # (AUTO) 0.1 10^3/uL (0.0-0.1); BASOPHILS % (AUTO) 0.6 %; EOSINOPHILS # (AUTO) 0.1 10^3/uL (0.0-0.7); EOSINOPHILS % (AUTO) 1.3 %; HGB - HEMOGLOBIN 15.8 g/dL (12.0-16.0); LYMPHOCYTES % (AUTO) 33.4 %; MEAN CORPUSCULAR HEMOGLOBIN 29.4 pg (27.0-31.0); MEAN CORPUSCULAR HGB CONC 32.8 g/dL (32.0-36.0); MEAN CORPUSCULAR VOLUME 89.4 fL (81.0-99.0); MEAN PLATELET VOLUME 10.5 fL (7.9-10.8); MONOCYTES # (AUTO) 0.7 10^3/uL (0.0-1.0); MONOCYTES % (AUTO) 7.7 %; NEUTROPHILS # (AUTO) 5.1 10^3/uL (1.5-6.6); NEUTROPHILS % (AUTO) 56.4 %; PLT - PLATELET COUNT 248 10^3/uL (130-450); RED BLOOD COUNT 5.38 10^6/uL (4.20-5.40); WHITE BLOOD COUNT 9.1 x10^3/uL (4.8-10.8)
[2019-06-18 11:11] LABS: ALBUMIN 3.7 g/dL (3.2-5.5); ALBUMIN/GLOBULIN RATIO 1.1 (1.0-2.2); BILIRUBIN,TOTAL 0.6 mg/dL (0.2-1.0); CALCIUM 9.8 mg/dL (8.5-10.3); CREATININE 0.8 mg/dL (0.4-1.0); TOTAL PROTEIN 7.1 g/dL (6.7-8.2)
== END 2019-06-18 10:48 | disposition home or self-care (01) ==
LOC: LAB 10:47
PROVIDERS: ATTEND Nurse Practitioner
DX: R10.11 Right upper quadrant pain (principal)
CPT/HCPCS: 36415; 80053; 85025

== ENCOUNTER 2019-06-20 13:04 | Outpatient (CLI) | payer OTHER ==
--- NOTE | 2019-06-21 14:27 | Ultrasound Report ---
Reason: RUQ ABDOMINAL PAIN Procedure Date: 06/20/2019 Accession Number: [id number] / [id number] Procedure: US - Abdomen Limited CPT Code: FULL RESULT: EXAM: ABDOMEN ULTRASOUND LIMITED, RUQ EXAM DATE: 06/20/2019 02:17 PM. CLINICAL HISTORY: RUQ ABDOMINAL PAIN. COMPARISON: None. TECHNIQUE: Real-time scanning was performed with static images obtained. FINDINGS: Liver: Increased both in size and echotexture. 19 cm. Main portal vein flow: Hepatopetal. Gallbladder: Surgically absent. Biliary System: CBD measures 7 mm. No intrahepatic or extrahepatic ductal dilatation. Free fluid: None. Right kidney: 11.3 cm in length. Unremarkable. IMPRESSION: 1. Status post cholecystectomy. 2. Mild hepatomegaly with fatty infiltration of the liver. [facility]
== END 2019-06-20 13:05 | disposition home or self-care (01) ==
LOC: DI 13:04
PROVIDERS: ATTEND Nurse Practitioner
DX: R10.11 Right upper quadrant pain (principal); K76.0 Fatty (change of) liver, not elsewhere classified; Z90.49 Acquired absence of other specified parts of digestive tract
CPT/HCPCS: 76705

== ENCOUNTER 2019-06-28 17:13 | Outpatient (CLI) | payer OTHER ==
[2019-06-28] MEDS ORDERED: IOVERSOL 320 100 ML VIAL IVP ONE ×2 (17:48→18:34)
[2019-06-28] MEDS ORDERED: IOVERSOL 320 50 ML VIAL ONE (17:48)
[2019-06-28] MEDS ORDERED: IOVERSOL 320 50 ML VIAL PO ONE (18:34)
--- NOTE | 2019-06-29 09:34 | CT Report ---
Reason: RUQ ABDOMINAL PAIN, DM Procedure Date: 06/28/2019 Accession Number: [id number] / [id number] Procedure: CT - ABDOMEN W CPT Code: Final Report FULL RESULT: EXAM: CT ABDOMEN WITHOUT AND WITH CONTRAST EXAM DATE: 06/28/2019 06:31 PM. CLINICAL HISTORY: RUQ ABDOMINAL PAIN, DM. COMPARISONS: ABDOMEN/PELVIS W/ 03/24/2019 4:26 PM. TECHNIQUE: Multiphasic CT of abdomen (pancreas) without and with IV contrast: OPTI 320 100ML. Enteric contrast: Yes. Reconstructions: Coronal and sagittal. In accordance with CT protocol optimization, one or more of the following dose reduction techniques were utilized for this exam: automated exposure control, adjustment of mA and/or KV based on patient size, or use of iterative reconstructive technique. FINDINGS: Lung Bases: The lung bases without evidence or infiltrate. Solid Organs: The liver is without evidence of an enhancing mass. Diffuse hepatic steatosis is noted. There are postoperative changes consistent with a cholecystectomy. The spleen, pancreas, and adrenal glands are without evidence of a mass. The kidneys are without evidence of a mass or hydronephrosis. Bowel: The visualized appendix is normal in appearance. There are no dilated loops of bowel to suggest the presence of an obstruction. Diverticulosis of the descending colon is noted without evidence of diverticulitis. Bones: There are degenerative changes of the thoracic and lumbar spine. IMPRESSION: Diffuse hepatic steatosis. Postoperative changes consistent with a cholecystectomy. Diverticulosis of the descending colon without evidence of diverticulitis. Atherosclerosis of the aorta and iliac arteries. [facility]
== END 2019-06-28 17:14 | disposition home or self-care (01) ==
LOC: DI 17:13
PROVIDERS: ATTEND Nurse Practitioner
DX: R10.11 Right upper quadrant pain (principal); E11.40 Type 2 diabetes mellitus with diabetic neuropathy, unspecified; K76.0 Fatty (change of) liver, not elsewhere classified; K57.30 Diverticulosis of large intestine without perforation or abscess without bleeding; I70.0 Atherosclerosis of aorta
CPT/HCPCS: 74160; Q9967

== ENCOUNTER 2019-09-14 12:04 | Outpatient (CLI) | payer OTHER ==
[2019-09-14 12:51] LABS: CREATININE 0.7 mg/dL (0.4-1.0)
[2019-09-14 13:15] LABS: HB2 TOTAL 13.9 g/dL; HEMOGLOBIN A1C 1.04 g/dL
== END 2019-09-14 12:05 | disposition home or self-care (01) ==
LOC: LAB 12:04
PROVIDERS: ATTEND Nurse Practitioner
DX: I10 Essential (primary) hypertension (principal); E11.40 Type 2 diabetes mellitus with diabetic neuropathy, unspecified
CPT/HCPCS: 36415; 80048; 83036

== ENCOUNTER 2019-11-02 08:00 | Outpatient (CLI) | payer OTHER | END 2019-11-02 23:59 | disposition home or self-care (01) | LOC: LAB.R 08:00 | PROVIDERS: ATTEND Nurse Practitioner | DX: J06.9 Acute upper respiratory infection, unspecified (principal); R50.9 Fever, unspecified | CPT/HCPCS: 81599; 87275; 87276 ==

== ENCOUNTER 2019-11-02 14:51 | Outpatient (CLI) | payer OTHER ==
[2019-11-02 15:20] LABS: BASOPHILS # (AUTO) 0.1 10^3/uL (0.0-0.1); BASOPHILS % (AUTO) 0.5 %; EOSINOPHILS # (AUTO) 0.2 10^3/uL (0.0-0.7); EOSINOPHILS % (AUTO) 1.9 %; HGB - HEMOGLOBIN 14.2 g/dL (12.0-16.0); LYMPHOCYTES # (AUTO) 4.2 10^3/uL (1.5-3.5); LYMPHOCYTES % (AUTO) 39.4 %; MEAN CORPUSCULAR HEMOGLOBIN 29.2 pg (27.0-31.0); MEAN CORPUSCULAR VOLUME 91.2 fL (81.0-99.0); MEAN PLATELET VOLUME 10.4 fL (7.9-10.8); MONOCYTES # (AUTO) 0.7 10^3/uL (0.0-1.0); MONOCYTES % (AUTO) 6.2 %; NEUTROPHILS # (AUTO) 5.5 10^3/uL (1.5-6.6); NEUTROPHILS % (AUTO) 51.5 %; PLT - PLATELET COUNT 269 10^3/uL (130-450); RED BLOOD COUNT 4.87 10^6/uL (4.20-5.40); WHITE BLOOD COUNT 10.6 x10^3/uL (4.8-10.8)
[2019-11-02 15:33] LABS: ALBUMIN 3.7 g/dL (3.2-5.5); ALBUMIN/GLOBULIN RATIO 1.2 (1.0-2.2); BILIRUBIN,TOTAL 0.4 mg/dL (0.2-1.0); CALCIUM 9.1 mg/dL (8.5-10.3); CREATININE 0.8 mg/dL (0.4-1.0); TOTAL PROTEIN 6.8 g/dL (6.7-8.2)
== END 2019-11-02 14:52 | disposition home or self-care (01) ==
LOC: LAB 14:51
PROVIDERS: ATTEND Nurse Practitioner
DX: E11.40 Type 2 diabetes mellitus with diabetic neuropathy, unspecified (principal); R50.9 Fever, unspecified
CPT/HCPCS: 36415; 80053; 85025; 87040

== ENCOUNTER 2019-11-02 16:17 | Outpatient (CLI) | payer OTHER ==
--- NOTE | 2019-11-03 15:15 | XRAY Report ---
Reason: WOUND LEFT 2ND DIGIT Procedure Date: 11/02/2019 Accession Number: [id number] / [id number] Procedure: XR - Foot 2 View LT CPT Code: Final Report FULL RESULT: EXAM: LEFT FOOT RADIOGRAPHY EXAM DATE: 11/02/2019 04:33 PM. CLINICAL HISTORY: WOUND LEFT 2ND DIGIT. Rule out osteomyelitis. COMPARISON: FOOT 3 VIEW LT 06/04/2018 2:30 PM. TECHNIQUE: 2 views. FINDINGS: Bones: Normal. No fractures or bone lesions. Joints: Mild hallux valgus. No dislocation. Soft Tissues: Soft tissue calcifications have developed dorsal to the tarsometatarsal joints on lateral film. Plantar calcaneal enthesophyte. IMPRESSION: 1. Nonspecific soft tissue calcifications have developed dorsal to the tarsometatarsal joints on lateral film. The middle and lateral cuneiform bones are partially obscured by overlying osseous structures. If patient has a wound in this region, MRI would be suggested to further assess. [facility]
== END 2019-11-02 16:18 | disposition home or self-care (01) ==
LOC: DI 16:17
PROVIDERS: ATTEND Nurse Practitioner
DX: M79.672 Pain in left foot (principal); M79.89 Other specified soft tissue disorders; E11.40 Type 2 diabetes mellitus with diabetic neuropathy, unspecified; R50.9 Fever, unspecified
CPT/HCPCS: 36415; 80053; 85025; 87040

== ENCOUNTER 2020-01-22 08:40 | Outpatient (CLI) | payer OTHER ==
[2020-01-22 09:31] LABS: HB2 TOTAL 15.1 g/dL; HEMOGLOBIN A1C 0.89 g/dL; HEMOGLOBIN A1C % 7.5 % (4.6-6.2)
[2020-01-22 09:32] LABS: BUN - BLOOD UREA NITROGEN 25 mg/dL (6-20); CALCIUM 9.1 mg/dL (8.5-10.3); CARBON DIOXIDE - CO2 28 mmol/L (21-32); CHLORIDE 102 mmol/L (101-111); CHOL/HDL RATIO 3.8 (<4.4); CHOLESTEROL 126 mg/dL; CREATININE 0.7 mg/dL (0.4-1.0); GLUCOSE 160 mg/dL (70-100); HDL CHOLESTEROL 33 mg/dL; LDL CHOLESTEROL,CALCULATED 72 mg/dL; LDL/HDL RATIO 2.2 (<4.4); SODIUM 138 mmol/L (135-145); VLDL CHOLESTEROL 21 mg/dL
== END 2020-01-22 08:41 | disposition home or self-care (01) ==
LOC: LAB 08:40
PROVIDERS: ATTEND Nurse Practitioner
DX: E11.40 Type 2 diabetes mellitus with diabetic neuropathy, unspecified (principal)
CPT/HCPCS: 36415; 80048; 80061; 82043; 83036; 83721

== ENCOUNTER 2020-04-22 12:13 | Outpatient (CLI) | payer OTHER ==
[2020-04-22 12:44] LABS: CALCIUM 9.5 mg/dL (8.5-10.3); CREATININE 0.7 mg/dL (0.4-1.0)
[2020-04-22 14:40] LABS: HEMOGLOBIN A1c% 7.1 % (4.27-6.07)
== END 2020-04-22 12:14 | disposition home or self-care (01) ==
LOC: LAB 12:13
PROVIDERS: ATTEND Nurse Practitioner
DX: E11.42 Type 2 diabetes mellitus with diabetic polyneuropathy (principal)
CPT/HCPCS: 36415; 80048; 83036

== ENCOUNTER 2020-06-06 13:52 | Outpatient (CLI) | payer OTHER ==
--- NOTE | 2020-06-07 12:24 | MRI Report ---
PROCEDURE: Foot LT W/O INDICATIONS: DMII, W/NEUROPATHY EXTACOVBATSON OF CHARCOT FOOT TECHNIQUE: Noncontrast coronal and sagittal T1 spin echo and STIR; axial T1 spin echo and T2 fast spin echo with fat saturation through the left foot. COMPARISON: 03/25/2020. FINDINGS: Image quality: Excellent. Bones: Compared to previous study, again noted are extensive midfoot edema, spurring, joint space ra rowing, subchondral sclerosis and cystic changes predominantly involving cuneiforms and first through fourth metatarsal bases. There is suggestion of inferior subluxation at second and third TMT joints. Not significantly changed from previous study and is most consistent with neuropathic arthropathy (C harcot's joint). No new area of abnormal marrow signal is seen. No fracture or dislocation. Soft tissues: There is no evidence of soft tissue ulceration. Mild dorsal midfoot soft tissue edema is seen. No discrete fluid collection. The scanned muscles demonstrate normal overall bulk and analytics intern al signal. IMPRESSION: 1. Finding is consistent with Charcot's arthropathy involving mid foot joints particularly at first t hrough fourth TMT joints. No new area of marrow signal abnormality. No fracture or dislocation. 2. There is no soft tissue ulceration. Mild dorsal midfoot soft tissue swelling. Forefoot tendons and ligaments are grossly intact. Reviewed by: Nicolás Fleming MD on 06/07/2020 12:22 PM PDT Approved by: Nicolás Fleming MD on 06/07/2020 12:22 PM PDT Station ID: [id number]
--- NOTE | 2020-06-07 16:59 | MRI Report ---
PROCEDURE: Ankle LT W/O INDICATIONS: DMII, W/NEUROPATHY EXTACOVBATSON OF [place]ARCOT FOOT TECHNIQUE: Noncontrast sagittal T1 spin echo and T2 fast spin echo with fat saturation, axial proton density fas t spin echo and T2 fast spin echo with fat saturation, coronal T1 spin echo and T2 fast spin echo wit h fat saturation through the ankle/hindfoot. COMPARISON: Left foot MRI dated 03/25/2020. FINDINGS: Image quality: Excellent. Bones and joints: Edema and slight deformity involving tarsometatarsal joints is again seen, not sign ificantly changed from previous study suggestive of neuropathic arthropathy better evaluated on foot MRI. Ankle mortise is congruent No hindfoot coalitions. No osteochondral injuries of the talar dome. No pathologic joint effusions. Medial structures: The posterior tibialis, flexor digitorum longus, and flexor hallucis longus tendo ns are intact. The posterior tibial neurovascular bundle appears normal within the tarsal tunnel, wi thout extrinsic mass effect. The deep layer (anterior and posterior tibiotalar ligaments) and superf icial layer (tibionavicular, tibiospring, and tibiocalcaneal ligaments) of the deltoid ligament appea r normal. The spring ligament components (superomedial calcaneonavicular, medioplantar oblique calca neonavicular, and inferoplantar longitudinal ligaments) are intact. Lateral structures: The anterior talofibular, calcaneofibular, and posterior talofibular ligaments a ppear intact. More superiorly, the anterior and posterior tibiofibular ligaments appear normal, as i s the intermalleolar ligament. The tibiofibular syndesmosis is normal in width at 2 mm or less. The peroneus longus and brevis tendons demonstrate normal location and morphology. Adjacent bony perone al tubercle and retrotrochlear prominence are normal in size. The sinus tarsi demonstrates normal fa tty signal, without edema, fibrosis, or cyst formation. Visualized sinus tarsi components (cervical ligament, interosseous talocalcaneal ligament, roots of the inferior extensor retinaculum) appear nor mal. Anterior structures: The tibialis anterior, extensor hallucis longus, and extensor digitorum longus tendons appear intact. Posterior and plantar structures: Achilles tendon is intact. Medial and lateral bands of the planta r fascia are of normal thickness. No abductor digiti quinti muscle atrophy to suggest Clarke neuropa thy. IMPRESSION: 1. 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 2. Ankle mortise is congruent. No marrow edema or fracture is seen in ankle joints. 3. Ankle tendons and ligaments are grossly intact. Reviewed by: Nicolás Fleming MD on 06/07/2020 4:57 PM PDT Approved by: Nicolás Fleming MD on 06/07/2020 4:57 PM PDT Station ID: [id number]
== END 2020-06-06 13:53 | disposition home or self-care (01) ==
LOC: DI 13:52
PROVIDERS: ATTEND Podiatrist
DX: R93.6 Abnormal findings on diagnostic imaging of limbs (principal)

== ENCOUNTER 2020-07-25 08:00 | Outpatient (CLI) | payer OTHER ==
[2020-07-25 18:34] LABS: CALCIUM 10.1 mg/dL (8.5-10.3); CREATININE 0.7 mg/dL (0.4-1.0)
[2020-07-25 19:48] LABS: HEMOGLOBIN A1c% 7.3 % (4.27-6.07)
== END 2020-07-25 23:59 | disposition home or self-care (01) ==
LOC: LAB.WCP 08:00
PROVIDERS: ATTEND Nurse Practitioner
DX: E11.40 Type 2 diabetes mellitus with diabetic neuropathy, unspecified (principal)
CPT/HCPCS: 36415; 80048; 83036

== ENCOUNTER 2020-12-05 15:55 | Outpatient (CLI) | payer OTHER ==
[2020-12-05 16:19] LABS: BASOPHILS # (AUTO) 0.1 10^3/uL (0.0-0.1); BASOPHILS % (AUTO) 0.5 %; EOSINOPHILS # (AUTO) 0.2 10^3/uL (0.0-0.7); EOSINOPHILS % (AUTO) 1.2 %; HCT - HEMATOCRIT 44.9 % (37.0-47.0); HGB - HEMOGLOBIN 14.7 g/dL (12.0-16.0); LYMPHOCYTES # (AUTO) 4.1 10^3/uL (1.5-3.5); LYMPHOCYTES % (AUTO) 31.7 %; MEAN CORPUSCULAR HEMOGLOBIN 28.7 pg (27.0-31.0); MEAN CORPUSCULAR HGB CONC 32.7 g/dL (32.0-36.0); MEAN CORPUSCULAR VOLUME 87.5 fL (81.0-99.0); MEAN PLATELET VOLUME 10.4 fL (7.9-10.8); MONOCYTES # (AUTO) 0.9 10^3/uL (0.0-1.0); MONOCYTES % (AUTO) 6.6 %; NEUTROPHILS # (AUTO) 7.8 10^3/uL (1.5-6.6); NEUTROPHILS % (AUTO) 59.6 %; PLT - PLATELET COUNT 288 10^3/uL (130-450); RED BLOOD COUNT 5.13 10^6/uL (4.20-5.40); RED CELL DISTRIBUTION WIDTH 13.2 % (12.0-15.0); WHITE BLOOD COUNT 13.1 x10^3/uL (4.8-10.8)
[2020-12-05 16:33] LABS: ALBUMIN 4.1 g/dL (3.2-5.5); ALBUMIN/GLOBULIN RATIO 1.2 (1.0-2.2); BILIRUBIN,TOTAL 0.4 mg/dL (0.2-1.0); CALCIUM 9.8 mg/dL (8.5-10.3); CREATININE 0.8 mg/dL (0.4-1.0); TOTAL PROTEIN 7.6 g/dL (6.7-8.2)
[2020-12-05 19:54] LABS: ESTIMATED AVERAGE GLUCOSE 166 mg/dL (70-100); HEMOGLOBIN A1c% 7.4 % (4.27-6.07)
== END 2020-12-05 15:56 | disposition home or self-care (01) ==
LOC: LAB 15:55
PROVIDERS: ATTEND Nurse Practitioner
DX: E11.42 Type 2 diabetes mellitus with diabetic polyneuropathy (principal)
CPT/HCPCS: 36415; 80053; 83036; 85025

== ENCOUNTER 2021-06-16 09:32 | Outpatient (CLI) | payer OTHER ==
[2021-06-16 13:27] LABS: BASOPHILS # (AUTO) 0.1 10^3/uL (0.0-0.1); BASOPHILS % (AUTO) 0.7 %; EOSINOPHILS # (AUTO) 0.1 10^3/uL (0.0-0.7); EOSINOPHILS % (AUTO) 1.4 %; HCT - HEMATOCRIT 44.4 % (37.0-47.0); HGB - HEMOGLOBIN 14.1 g/dL (12.0-16.0); LYMPHOCYTES # (AUTO) 3.5 10^3/uL (1.5-3.5); LYMPHOCYTES % (AUTO) 39.1 %; MEAN CORPUSCULAR HEMOGLOBIN 28.3 pg (27.0-31.0); MEAN CORPUSCULAR HGB CONC 31.8 g/dL (32.0-36.0); MEAN PLATELET VOLUME 11.1 fL (7.9-10.8); MONOCYTES # (AUTO) 0.7 10^3/uL (0.0-1.0); MONOCYTES % (AUTO) 7.2 %; NEUTROPHILS # (AUTO) 4.6 10^3/uL (1.5-6.6); NEUTROPHILS % (AUTO) 51.3 %; PLT - PLATELET COUNT 312 10^3/uL (130-450); RED BLOOD COUNT 4.99 10^6/uL (4.20-5.40); RED CELL DISTRIBUTION WIDTH 13.8 % (12.0-15.0)
[2021-06-16 13:46] LABS: ALBUMIN 3.8 g/dL (3.2-5.5); ALBUMIN/GLOBULIN RATIO 1.1 (1.0-2.2); ALKALINE PHOSPHATASE 64 IU/L (42-121); ALT ALANINE AMINOTRANSFERASE 27 IU/L (10-60); AST ASPARTATE AMINOTRANSFERASE 29 IU/L (10-42); BILIRUBIN,TOTAL 0.8 mg/dL (0.2-1.0); BUN - BLOOD UREA NITROGEN 15 mg/dL (6-20); CALCIUM 9.3 mg/dL (8.5-10.3); CARBON DIOXIDE - CO2 29 mmol/L (21-32); CHLORIDE 103 mmol/L (101-111); CHOL/HDL RATIO 6.4 (<4.4); CHOLESTEROL 212 mg/dL; CREATININE 0.7 mg/dL (0.4-1.0); GFR - MDRD 86 (>89); GLUCOSE 141 mg/dL (70-100); HDL CHOLESTEROL 33 mg/dL; LDL CHOLESTEROL,CALCULATED 155 mg/dL; LDL/HDL RATIO 4.7 (<4.4); SODIUM 141 mmol/L (135-145); TOTAL PROTEIN 7.4 g/dL (6.7-8.2); TRIGLYCERIDES 122 mg/dL; VLDL CHOLESTEROL 24 mg/dL
[2021-06-16 13:51] LABS: CREATININE,URINE 176.8 mg/dL; MICROALBUM/CREATININE RATIO,UR 5.1 ug/mg (<30.0); MICROALBUMIN,URINE 0.9 mg/dL (0-300.0)
[2021-06-16 14:00] LABS: ESTIMATED AVERAGE GLUCOSE 166 mg/dL (70-100); HEMOGLOBIN A1c% 7.4 % (4.27-6.07)
== END 2021-06-16 09:33 | disposition home or self-care (01) ==
LOC: LAB.N 09:32
PROVIDERS: ATTEND Internal Medicine
DX: I10 Essential (primary) hypertension (principal); E11.40 Type 2 diabetes mellitus with diabetic neuropathy, unspecified
CPT/HCPCS: 36415; 80053; 80061; 82043; 82570; 83036; 83721; 84443; 85025

== ENCOUNTER 2021-06-21 09:17 | Outpatient (CLI) | payer OTHER ==
--- NOTE | 2021-06-22 09:11 | Mammography Report ---
BILATERAL DIGITAL SCREENING MAMMOGRAM 3D/2D: 06/21/2021 CLINICAL: Routine screening. Comparison is made to exams dated: 11/01/2018 mammogram, 12/27/2016 mammogram, and 03/24/2015 mammogram - [facility]. There are scattered fibroglandular elements in both breasts. No significant masses, calcifications, or other findings are seen in either breast. There has been no significant interval change. IMPRESSION: NEGATIVE There is no mammographic evidence of malignancy. A 1 year screening mammogram is recommended. This exam was interpreted at Station ID: [id number]. NOTE: For mammograms, a report in lay terms will be sent to the patient. Approximately 15% of breast malignancies will not be visualized mammographically. In the management of a palpable breast mass, a negative mammogram must not discourage biopsy of a clinically suspicious lesion. Electronically Signed By: Ho Cardona M.D. slc/penrad:06/21/2021 13:15:42 ACR BI-RADS Category 1: Negative 3341F PARENCHYMAL PATTERN: (A) - The breast(s) demonstrate(s) scattered fibroglandular densities. BI-RADS CATEGORY: (1) - 1 RECOMMENDATION: (ANNUAL) - Recommend routine annual screening mammography. [id number] 1 year screening LATERALITY: (B)
== END 2021-06-21 09:18 | disposition home or self-care (01) ==
LOC: DI 09:17
PROVIDERS: ATTEND Internal Medicine
DX: Z12.31 Encounter for screening mammogram for malignant neoplasm of breast (principal)

== ENCOUNTER 2021-12-03 09:02 | Outpatient (CLI) | payer OTHER ==
[2021-12-03 12:45] LABS: ESTIMATED AVERAGE GLUCOSE 180 mg/dL (70-100); HEMOGLOBIN A1c% 7.9 % (4.27-6.07)
[2021-12-03 12:48] LABS: BUN - BLOOD UREA NITROGEN 15 mg/dL (6-20); CALCIUM 9.7 mg/dL (8.5-10.3); CARBON DIOXIDE - CO2 28 mmol/L (21-32); CHLORIDE 100 mmol/L (101-111); CHOL/HDL RATIO 4.1 (<4.4); CHOLESTEROL 131 mg/dL; CREATININE 0.8 mg/dL (0.4-1.0); GFR - MDRD 73 (>89); GLUCOSE 175 mg/dL (70-100); HDL CHOLESTEROL 32 mg/dL; LDL CHOLESTEROL,CALCULATED 77 mg/dL; LDL/HDL RATIO 2.4 (<4.4); POTASSIUM 4.4 mmol/L (3.5-5.0); SODIUM 138 mmol/L (135-145); TRIGLYCERIDES 108 mg/dL; VLDL CHOLESTEROL 22 mg/dL
[2021-12-03 13:01] LABS: CREATININE,URINE 139.4 mg/dL; MICROALBUM/CREATININE RATIO,UR 3.6 ug/mg (<30.0); MICROALBUMIN,URINE 0.5 mg/dL (0-300.0)
== END 2021-12-03 09:03 | disposition home or self-care (01) ==
LOC: LAB.N 09:02
PROVIDERS: ATTEND Internal Medicine
DX: E11.42 Type 2 diabetes mellitus with diabetic polyneuropathy (principal)
CPT/HCPCS: 36415; 80048; 80061; 82043; 82570; 83036; 83721

== ENCOUNTER 2022-07-01 10:32 | Outpatient (CLI) | payer OTHER ==
--- NOTE | 2022-07-02 09:13 | Mammography Report ---
BILATERAL DIGITAL SCREENING MAMMOGRAM 3D/2D: 07/01/2022 CLINICAL: Routine screening. Comparison is made to exams dated: 06/21/2021 mammogram, 11/01/2018 mammogram, 12/27/2016 mammogram, mammogram, and 07/05/2011 mammogram - [facility]. Both breasts are almost entirely fatty (category a/<25% glandular tissue). No significant masses, calcifications, or other findings are seen in either breast. There has been no significant interval change. IMPRESSION: NEGATIVE There is no mammographic evidence of malignancy. A 1 year screening mammogram is recommended. Based on the Tyrer Cuzick model (a risk assessment model) the patients lifetime risk is 2.4% and her 10 year risk is 0.9%. According to the ACR, ACS, and NCCN guidelines, an annual breast MRI exam cassandra g with mammogram is recommended if the patients lifetime risk is 20% or greater. This exam was interpreted at Station ID: [id number]. NOTE: For mammograms, a report in lay terms will be sent to the patient. Approximately 15% of breast malignancies will not be visualized mammographically. In the management of a palpable breast mass, a negative mammogram must not discourage biopsy of a clinically suspicious lesion. Electronically Signed By: Cora uribe/mabel:07/01/2022 20:47:50 ACR BI-RADS Category 1: Negative 3341F PARENCHYMAL PATTERN: (F) - The breast(s) demonstrate(s) diffuse fatty replacement. BI-RADS CATEGORY: (1) - 1 RECOMMENDATION: (ANNUAL) - Recommend routine annual screening mammography. [id number] 1 year screening LATERALITY: (B)
== END 2022-07-01 10:33 | disposition home or self-care (01) ==
LOC: DI.N 10:32
PROVIDERS: ATTEND Internal Medicine
DX: Z12.31 Encounter for screening mammogram for malignant neoplasm of breast (principal)

== ENCOUNTER 2022-07-01 10:42 | Outpatient (CLI) | payer OTHER ==
--- NOTE | 2022-07-01 13:13 | XRAY Report ---
PROCEDURE: Hips 2V BILAT INDICATIONS: OA, BILATERAL HIPS TECHNIQUE: AP pelvis and single view of the right and left hip COMPARISON: None FINDINGS: Bones: No fractures or dislocations. No suspicious bony lesions. The visualized pelvic ring appear s intact. There is some sffs-ui-cromiadx osteoarthritic type degenerative changes involving both hips . Soft tissues: No suspicious soft tissue calcifications or masses. IMPRESSION: 1. No evidence for acute osseous abnormality involving the hips or pelvis. 2. 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 Reviewed by: Aime Garcia MD on 07/01/2022 1:12 PM PST Approved by: Aime Garcia MD on 07/01/2022 1:12 PM PST Station ID: [id number]
--- NOTE | 2022-07-01 13:18 | XRAY Report ---
PROCEDURE: Knee Standing AP View Only INDICATIONS: BILATERAL KNEE PX TECHNIQUE: 1 views of the right knee, and 1 views of the left knee. COMPARISON: None. FINDINGS: Bones: No acute fractures or dislocations. No suspicious bony lesions. There is lvyh-fa-fxefxpll os teoarthritic type degenerative change at involving both knees.. Soft tissues: No knee joint effusions. No suspicious soft tissue calcification. IMPRESSION: Udhk-zg-yagvqwny osteoarthritic type degenerative change involving both knees. Reviewed by: Aime Garcia MD on 07/01/2022 1:16 PM PST Approved by: Aime Garcia MD on 07/01/2022 1:16 PM PST Station ID: [id number]
== END 2022-07-01 10:43 | disposition home or self-care (01) ==
LOC: DI.N 10:42
PROVIDERS: ATTEND Internal Medicine
DX: M16.0 Bilateral primary osteoarthritis of hip (principal); M17.0 Bilateral primary osteoarthritis of knee

== ENCOUNTER 2022-09-30 14:15 | Outpatient (CLI) | payer OTHER ==
[2022-09-30 17:48] LABS: BILIRUBIN,URINE NEGATIVE (NEGATIVE); GLUCOSE, URINE (UA) NEGATIVE (NEGATIVE); KETONES,URINE (UA) NEGATIVE (NEGATIVE); LEUKOCYTE ESTERASE, URINE NEGATIVE (NEGATIVE); NITRITE,URINE NEGATIVE (NEGATIVE); OCCULT BLOOD,URINE LARGE (NEGATIVE); PROTEIN,URINE TRACE mg/dL (NEGATIVE); UROBILINOGEN,URINE 0.2 (NORMAL) E.U./dL (NORMAL)
[2022-09-30 17:52] LABS: BACTERIA,URINE Rare /HPF (None Seen); CLARITY,URINE SL. CLOUDY (CLEAR); RBC,URINE TNTC /HPF (0-5); SQUAMOUS EPITHELIAL CELL,UR FEW Squamous (<= Few); WBC,URINE 0-3 /HPF (0-5)
== END 2022-09-30 23:59 | disposition home or self-care (01) ==
LOC: LAB.WCP 14:15
PROVIDERS: ATTEND Internal Medicine
DX: R31.9 Hematuria, unspecified (principal)
CPT/HCPCS: 81001; 87086

== ENCOUNTER 2022-10-07 07:42 | Outpatient (CLI) | payer OTHER ==
[2022-10-07 08:15] LABS: ALBUMIN 3.9 g/dL (3.2-5.5); ALBUMIN/GLOBULIN RATIO 1.1 (1.0-2.2); BILIRUBIN,TOTAL 0.4 mg/dL (0.2-1.0); CALCIUM 9.9 mg/dL (8.5-10.3); CREATININE 0.7 mg/dL (0.4-1.0); TOTAL PROTEIN 7.6 g/dL (6.7-8.2)
[2022-10-07] MEDS ORDERED: iohexoL-300 100 ML VIAL ONE (08:21)
[2022-10-07] MEDS ORDERED: iohexoL-300 100 ML VIAL IVP ONE (09:33)
--- NOTE | 2022-10-07 12:19 | CT Report ---
PROCEDURE: CT abdomen and pelvis with contrast, CT-IVP INDICATIONS: 62-year-old female with gross hematuria times one week. Left flank pain. CONTRAST: 140ml Omnipaque 300 TECHNIQUE: After the administration of intravenous contrast, 5 mm thick sections acquired from the diaphragms to the symphysis. 5 mm thick coronal and sagittal reformats were acquired. For radiation dose reducti on, the following was used: automated exposure control, adjustment of mA and/or kV according to ole ent size. COMPARISON: CT abdomen 06/28/2019 FINDINGS: Lower thorax: The lung bases are clear. Heart size normal. No hiatal hernia. Liver: Normal in size and attenuation. No contour deformity present. Biliary system: Cholecystectomy Pancreas: Unremarkable without mass or inflammation evident. Spleen: Normal in size and density. Adrenals: Normal morphology and density. Reproductive system: Unremarkable as visualized. Urinary system: Normal renal size and attenuation. No renal calculi, hydronephrosis, or solid mass p resent. Urinary bladder unremarkable. Gastrointestinal system: The bowel appears unremarkable with no evidence of bowel obstruction or inf lammation. The stomach appears unremarkable. Multiple diverticula arise from the sigmoid colon withou t evidence of diverticulitis. Appendix: No findings to suggest acute appendicitis. Peritoneal spaces: No mesenteric or retroperitoneal adenopathy. No free air. No free fluid. Vasculature: The IVC, aorta and iliac vasculature are unremarkable. Musculoskeletal: Normal bone mineralization. No acute fractures. Abdominal wall intact without deven dence of ventral or inguinal hernias. Degenerative disc disease and arthropathy results in moderate c entral stenosis L4-5 IMPRESSION: No evidence of renal calculi, obstructive uropathy or hydronephrosis. Urinary bladder unremarkable. Chronic findings include diverticulosis without diverticulitis and degenerative disc disease in lower lumbar spine Reviewed by: Brenden Bosch MD on 10/07/2022 11:18 AM [facility] Approved by: Brenden Bosch MD on 10/07/2022 11:18 AM [facility] Station ID: [id number]
== END 2022-10-07 07:43 | disposition home or self-care (01) ==
LOC: LAB 07:42
PROVIDERS: ATTEND Internal Medicine
DX: I10 Essential (primary) hypertension (principal); R31.0 Gross hematuria; K57.30 Diverticulosis of large intestine without perforation or abscess without bleeding; M51.36 Other intervertebral disc degeneration, lumbar region; M47.816 Spondylosis without myelopathy or radiculopathy, lumbar region; M48.061 Spinal stenosis, lumbar region without neurogenic claudication
CPT/HCPCS: 36415; 74178; 80053; Q9967

== ENCOUNTER 2022-10-09 07:24 | Day surgery (SDC) | payer OTHER ==
[2022-10-09] MEDS ORDERED: LACTATED RINGERS 1,000 ML IV ONE ×2 (07:40→09:17)
--- NOTE | 2022-10-09 08:15 | ANESTHESIA ---
Pre-Anesthesia VS, & Labs - Diagnosis screening exam, history of colon polyps - Procedure colonoscopy Vital Signs: Temp Pulse Resp BP Pulse Ox O2 Flow Rate 36.1 C L 109 H 18 141/85 H 97 10/09/22 07:30 10/09/22 07:30 10/09/22 07:30 10/09/22 07:30 10/09/22 07:30 Height: 5 ft 6 in Weight (kg): 119 kg Body Mass Index: 42.3 BMI Classification: Morbidly Obese - NPO Last Fluid Intake: 299 - Is Patient ?: No - Lab Results Current Lab Results: Laboratory Tests 10/09/22 07:43: POC Whole Bld Glucose 122 H Lab results reviewed: Yes Home Medications and Allergies Insulin Lispro [Humalog Kwikpen U-100] 100 unit SQ CROP SUPERVISOR 06/28/16 Atorvastatin [Lipitor] 10 mg PO DAILY 07/07/17 Cholecalciferol [Vitamin D3] 5,000 unit PO DAILY 10/30/18 Gabapentin 300 - 600 mg PO BID 10/30/18 Losartan Potassium 50 mg PO DAILY 10/30/18 Allergies/Adverse Reactions: Allergies Allergy/AdvReac Type Severity Reaction Status Date / Time cefaclor [From Ceclor] Allergy Severe Anaphylaxis Verified 10/09/22 07:45 cephalexin monohydrate * Allergy Severe Anaphylaxis Verified 10/09/22 07:45 [From Keflex] hydrocodone bitartrate * Allergy Severe Anaphylaxis Verified 10/09/22 07:45 [From Vicodin] codeine Allergy Unknown Verified 10/09/22 07:45 Penicillins Allergy Unknown Verified 10/09/22 07:45 Tetanus Vaccines and Toxoid Allergy Respiratory Verified 10/09/22 07:45 [Tetanus Vaccines & Toxoid] hydromorphone HCl * AdvReac Unknown Verified 10/09/22 07:45 [From Dilaudid] tuberculin,PPD,multi-puncture AdvReac Edema Verified 10/09/22 07:45 Anes History & Medical History - Anesthetic History Anesthesia Complications: reports: No previous complications - Medical History Cardiovascular: reports: Hypertension, High cholesterol Pulmonary: reports: None Gastrointestinal: reports: Colon polyps, Chronic constipation, Hemorrhoids Urinary: reports: None Neuro: reports: Peripheral neuropathy Musculoskeletal: reports: Chronic back pain Endocrine/Autoimmune: reports: Type 2 diabetes Blood Disorders: reports: None Skin: reports: None Smoking Status: Current every day smoker Psychosocial: reports: No issues indicated History of Cancer?: No - Surgical History General: reports: Cholecystectomy, Colonoscopy Eyes Ears Nose Throat (EENT): reports: Tonsil/Adenoidectomy Gynecologic: reports: section, Tubal ligation, Hysterectomy Orthopedic: reports: Carpal Tunnel surgery, Spine surgery, Other Exam General: Alert, Oriented x3, Cooperative, No acute distress Dental: Dentures full Upper, Partials Lower Mouth Openin Fingerbreadth Neck Mobility: Normal Mallampati classification: IV Thyromental Distance: 4-6 cm Mental/Cognitive Status: Alert/Oriented X3, Normal for patient Plan Anesthesia Type: General, Total IV Consent for Procedure(s) Verified and Reviewed: Yes Code Status: Attempt Resuscitation ASA classification: 3-Severe systemic disease Is this case an emergency?: No
[2022-10-09] MEDS ORDERED: PROPOFOL 500 MG/50 ML 500 MG/50 ML VIAL ONE (08:27)
[2022-10-09 09:52] VITALS: BP 129/88
--- NOTE | 2022-10-09 12:43 | ANESTHESIA POST OP EVALUATION ---
Anesthesia Post Eval - Post Anesthesia Eval Vitals: Last Vital Signs Temp 36.6 C 10/09/22 09:40 Pulse 80 10/09/22 09:40 Resp 16 10/09/22 09:40 BP 129/88 H 10/09/22 09:40 Pulse Ox 98 10/09/22 09:40 O2 Flow Rate CV Function Including HR & BP: Stable Pain Control: Satisfactory Nausea & Vomiting: Negative Mental Status: Baseline Respiratory Status: Airway Patent Hydration Status: Satisfactory Anesthesia Complications: None
== END 2022-10-09 07:25 | disposition home or self-care (01) ==
LOC: SDS 07:24
PROVIDERS: ATTEND Surgery
DX: Z12.11 Encounter for screening for malignant neoplasm of colon (principal); K57.30 Diverticulosis of large intestine without perforation or abscess without bleeding; Z86.010 Personal history of colon polyps; E66.01 Morbid (severe) obesity due to excess calories; Z68.41 Body mass index [BMI] 40.0-44.9, adult; E11.9 Type 2 diabetes mellitus without complications; F17.200 Nicotine dependence, unspecified, uncomplicated; Z79.84 Long term (current) use of oral hypoglycemic drugs
CPT/HCPCS: 45378; J7120

== ENCOUNTER 2023-02-08 08:36 | Outpatient (CLI) | payer OTHER ==
[2023-02-08 08:56] LABS: BASOPHILS # (AUTO) 0.1 10^3/uL (0.0-0.1); BASOPHILS % (AUTO) 0.8 %; EOSINOPHILS # (AUTO) 0.3 10^3/uL (0.0-0.7); EOSINOPHILS % (AUTO) 2.6 %; HCT - HEMATOCRIT 44.9 % (37.0-47.0); HGB - HEMOGLOBIN 14.3 g/dL (12.0-16.0); LYMPHOCYTES # (AUTO) 3.5 10^3/uL (1.5-3.5); LYMPHOCYTES % (AUTO) 34.8 %; MEAN CORPUSCULAR HEMOGLOBIN 27.9 pg (27.0-31.0); MEAN CORPUSCULAR HGB CONC 31.8 g/dL (32.0-36.0); MEAN CORPUSCULAR VOLUME 87.7 fL (81.0-99.0); MEAN PLATELET VOLUME 10.4 fL (7.9-10.8); MONOCYTES # (AUTO) 0.8 10^3/uL (0.0-1.0); MONOCYTES % (AUTO) 7.5 %; NEUTROPHILS # (AUTO) 5.5 10^3/uL (1.5-6.6); NEUTROPHILS % (AUTO) 53.9 %; PLT - PLATELET COUNT 301 10^3/uL (130-450); RED BLOOD COUNT 5.12 10^6/uL (4.20-5.40); RED CELL DISTRIBUTION WIDTH 14.1 % (12.0-15.0); WHITE BLOOD COUNT 10.1 x10^3/uL (4.8-10.8)
[2023-02-08 09:11] LABS: CREATININE,URINE 192.7 mg/dL; MICROALBUM/CREATININE RATIO,UR 5.7 ug/mg (<30.0); MICROALBUMIN,URINE 1.1 mg/dL (0-300.0)
[2023-02-08 09:12] LABS: ALBUMIN 3.8 g/dL (3.2-5.5); ALKALINE PHOSPHATASE 67 IU/L (42-121); ALT ALANINE AMINOTRANSFERASE 12 IU/L (10-60); AST ASPARTATE AMINOTRANSFERASE 16 IU/L (10-42); BILIRUBIN,TOTAL 0.6 mg/dL (0.2-1.0); BUN - BLOOD UREA NITROGEN 13 mg/dL (6-20); CALCIUM 9.3 mg/dL (8.5-10.3); CARBON DIOXIDE - CO2 31 mmol/L (21-32); CHLORIDE 108 mmol/L (101-111); CHOL/HDL RATIO 5.8 (<4.4); CHOLESTEROL 219 mg/dL; CREATININE 0.8 mg/dL (0.4-1.0); GFR - MDRD 73 (>89); GLUCOSE 97 mg/dL (70-100); HDL CHOLESTEROL 38 mg/dL; LDL CHOLESTEROL,CALCULATED 155 mg/dL; LDL/HDL RATIO 4.1 (<4.4); POTASSIUM 4.1 mmol/L (3.5-5.0); SODIUM 144 mmol/L (135-145); TOTAL PROTEIN 7.7 g/dL (6.7-8.2); TRIGLYCERIDES 132 mg/dL; VLDL CHOLESTEROL 26 mg/dL
[2023-02-08 09:21] LABS: THYROID STIMULATING HORMONE 2.16 uIU/mL (0.34-5.60)
[2023-02-08 11:46] LABS: ESTIMATED AVERAGE GLUCOSE 134 mg/dL (70-100); HEMOGLOBIN A1c% 6.3 % (4.27-6.07)
== END 2023-02-08 08:37 | disposition home or self-care (01) ==
LOC: LAB 08:36
PROVIDERS: ATTEND Internal Medicine
DX: I10 Essential (primary) hypertension (principal); E11.42 Type 2 diabetes mellitus with diabetic polyneuropathy; E55.9 Vitamin D deficiency, unspecified; F43.21 Adjustment disorder with depressed mood
CPT/HCPCS: 36415; 80053; 80061; 82043; 82306; 82570; 83036; 83721; 84443; 85025

== ENCOUNTER 2023-07-12 09:07 | Outpatient (CLI) | payer OTHER ==
[2023-07-12 09:30] LABS: BASOPHILS % (AUTO) 0.6 %; EOSINOPHILS # (AUTO) 0.2 10^3/uL (0.0-0.7); EOSINOPHILS % (AUTO) 2.4 %; HCT - HEMATOCRIT 45.1 % (37.0-47.0); HGB - HEMOGLOBIN 14.3 g/dL (12.0-16.0); LYMPHOCYTES # (AUTO) 3.1 10^3/uL (1.5-3.5); LYMPHOCYTES % (AUTO) 43.4 %; MEAN CORPUSCULAR HGB CONC 31.7 g/dL (32.0-36.0); MEAN CORPUSCULAR VOLUME 88.4 fL (81.0-99.0); MEAN PLATELET VOLUME 10.3 fL (7.9-10.8); MONOCYTES # (AUTO) 0.7 10^3/uL (0.0-1.0); MONOCYTES % (AUTO) 9.3 %; NEUTROPHILS # (AUTO) 3.1 10^3/uL (1.5-6.6); NEUTROPHILS % (AUTO) 44.2 %; PLT - PLATELET COUNT 278 10^3/uL (130-450); RED CELL DISTRIBUTION WIDTH 13.8 % (12.0-15.0); WHITE BLOOD COUNT 7.1 x10^3/uL (4.8-10.8)
[2023-07-12 09:48] LABS: ALBUMIN 3.9 g/dL (3.2-5.5); ALBUMIN/GLOBULIN RATIO 1.4 (1.0-2.2); ALKALINE PHOSPHATASE 60 IU/L (42-121); ALT ALANINE AMINOTRANSFERASE 17 IU/L (10-60); AST ASPARTATE AMINOTRANSFERASE 15 IU/L (10-42); BILIRUBIN,TOTAL 0.4 mg/dL (0.2-1.0); BUN - BLOOD UREA NITROGEN 15 mg/dL (6-20); CARBON DIOXIDE - CO2 33 mmol/L (21-32); CHLORIDE 105 mmol/L (101-111); CHOLESTEROL 180 mg/dL; CREATININE 0.8 mg/dL (0.6-1.3); GFR - MDRD 73 (>89); GLUCOSE 127 mg/dL (74-104); HDL CHOLESTEROL 36 mg/dL; LDL CHOLESTEROL,CALCULATED 110 mg/dL; LDL/HDL RATIO 3.1 (<4.4); POTASSIUM 4.3 mmol/L (3.5-4.5); SODIUM 140 mmol/L (135-145); TOTAL PROTEIN 6.6 g/dL (6.4-8.9); TRIGLYCERIDES 172 mg/dL (48-352); VLDL CHOLESTEROL 34 mg/dL
[2023-07-12 09:49] LABS: CREATININE,URINE 65.5 mg/dL
[2023-07-12 09:50] LABS: MICROALBUMIN,URINE < 0.7 mg/dL
[2023-07-12 11:01] LABS: ESTIMATED AVERAGE GLUCOSE 131 mg/dL (70-100); HEMOGLOBIN A1c% 6.2 % (4.27-6.07)
== END 2023-07-12 09:08 | disposition home or self-care (01) ==
LOC: LAB 09:07
PROVIDERS: ATTEND Internal Medicine
DX: I10 Essential (primary) hypertension (principal); E78.5 Hyperlipidemia, unspecified; E11.42 Type 2 diabetes mellitus with diabetic polyneuropathy
CPT/HCPCS: 36415; 80053; 80061; 81599; 82043; 82570; 83036; 83721; 85025; 86341

== ENCOUNTER 2023-11-17 15:04 | Outpatient (CLI) | payer OTHER ==
--- NOTE | 2023-11-18 10:10 | Mammography Report ---
BILATERAL DIGITAL SCREENING MAMMOGRAM 3D/2D: 11/17/2023 CLINICAL: Routine screening. Comparison is made to exams dated: 07/01/2022 mammogram, 06/21/2021 mammogram, 11/01/2018 mammogram, a nd 12/27/2016 mammogram - [facility]. There are scattered areas of fibroglandular density in both breasts (category b / 25%-50% glandular t issue). No significant masses, calcifications, or other findings are seen in either breast. There has been no significant interval change. IMPRESSION: NEGATIVE There is no mammographic evidence of malignancy. A 1 year screening mammogram is recommended. Based on the Tyrer Cuzick model (a risk assessment model) the patient's lifetime risk is 3.5% and her 10 year risk is 1.4%. According to the ACR, ACS, and NCCN guidelines, an annual breast MRI exam cassandra g with mammogram is recommended if the patient's lifetime risk is 20% or greater. This exam was interpreted at Station ID: [id number]. NOTE: For mammograms, a report in lay terms will be sent to the patient. Approximately 15% of breast malignancies will not be visualized mammographically. In the management of a palpable breast mass, a negative mammogram must not discourage biopsy of a clinically suspicious lesion. Electronically Signed By: Ho montes/mabel:11/17/2023 16:00:32 letter sent: No_Letter ACR BI-RADS Category 1: Negative 3341F PARENCHYMAL PATTERN: (A) - The breast(s) demonstrate(s) scattered fibroglandular densities. BI-RADS CATEGORY: (1) - 1 RECOMMENDATION: (ANNUAL) - Recommend routine annual screening mammography. [id number] 1 year screening LATERALITY: (B)
== END 2023-11-17 15:05 | disposition home or self-care (01) ==
LOC: DI.N 15:04
PROVIDERS: ATTEND Internal Medicine
DX: Z12.31 Encounter for screening mammogram for malignant neoplasm of breast (principal); R92.323 Mammographic fibroglandular density, bilateral breasts

== ENCOUNTER 2024-01-23 12:28 | Emergency (ER) | payer OTHER ==
[2024-01-23 12:59] LABS: BASOPHILS # (AUTO) 0.1 10^3/uL (0.0-0.1); BASOPHILS % (AUTO) 0.6 %; EOSINOPHILS # (AUTO) 0.1 10^3/uL (0.0-0.7); EOSINOPHILS % (AUTO) 1.4 %; HCT - HEMATOCRIT 44.6 % (37.0-47.0); HGB - HEMOGLOBIN 14.2 g/dL (12.0-16.0); LYMPHOCYTES # (AUTO) 3.7 10^3/uL (1.5-3.5); LYMPHOCYTES % (AUTO) 35.3 %; MEAN CORPUSCULAR HEMOGLOBIN 28.2 pg (27.0-31.0); MEAN CORPUSCULAR HGB CONC 31.8 g/dL (32.0-36.0); MEAN CORPUSCULAR VOLUME 88.7 fL (81.0-99.0); MEAN PLATELET VOLUME 10.2 fL (7.9-10.8); MONOCYTES # (AUTO) 0.8 10^3/uL (0.0-1.0); MONOCYTES % (AUTO) 7.7 %; NEUTROPHILS # (AUTO) 5.6 10^3/uL (1.5-6.6); NEUTROPHILS % (AUTO) 54.6 %; PLT - PLATELET COUNT 311 10^3/uL (130-450); RED BLOOD COUNT 5.03 10^6/uL (4.20-5.40); RED CELL DISTRIBUTION WIDTH 13.8 % (12.0-15.0); WHITE BLOOD COUNT 10.3 x10^3/uL (4.8-10.8)
[2024-01-23 13:17] LABS: ALBUMIN/GLOBULIN RATIO 1.4 (1.0-2.2); ALKALINE PHOSPHATASE 64 IU/L (42-121); ALT ALANINE AMINOTRANSFERASE 15 IU/L (10-60); AST ASPARTATE AMINOTRANSFERASE 14 IU/L (10-42); BILIRUBIN,TOTAL 0.3 mg/dL (0.2-1.0); BUN - BLOOD UREA NITROGEN 14 mg/dL (6-20); CALCIUM 10.1 mg/dL (8.5-10.3); CARBON DIOXIDE - CO2 31 mmol/L (21-32); CHLORIDE 104 mmol/L (101-111); CREATININE 0.8 mg/dL (0.6-1.3); GFR - MDRD 73 (>89); GLUCOSE 123 mg/dL (74-104); LIPASE 31 U/L (11-82); POTASSIUM 4.2 mmol/L (3.5-4.5); SODIUM 141 mmol/L (135-145); TOTAL PROTEIN 6.9 g/dL (6.4-8.9)
[2024-01-23 13:23] LABS: TROPONIN I HIGH SENSITIVITY < 2.3 ng/L (2.3-14.8)
--- NOTE | 2024-01-23 13:28 | XRAY Report ---
PROCEDURE: Chest 1V INDICATIONS: Chest pain TECHNIQUE: One view of the chest was acquired. COMPARISON: None. FINDINGS: Surgical changes and devices: None. Lungs and pleura: No pleural effusions or pneumothorax. Lungs are clear. Mediastinum: Mediastinal contours appear normal. Heart size is normal. Bones and chest wall: No suspicious bony lesions. Overlying soft tissues appear unremarkable. IMPRESSION: No acute cardiopulmonary process. Reviewed by: Judi Ritchie MD on 01/23/2024 1:27 PM PDT Approved by: Judi Ritchie MD on 01/23/2024 1:27 PM PDT Station ID: [id number]
--- NOTE | 2024-01-23 14:38 | ED Physician Documentation ---
History of Present Illness - Stated complaint Stated Complaint: HIGH BP,IRREGULAR HB - Chief complaint Chief Complaint: Cardiac - Additonal information Additional information: This is a 63-year-old female who presented with Several different concerns today including lower to mid back pain which patient has chronically but seemed a little bit worse today though she states she believes it is related to how she was sleeping in her bed. She has had prior low back surgery, denies any bowel or bladder changes, no extremity weakness or numbness. The pain has resolved since she has been in the ER. She was also feeling heart palpitations for the past day or 2 intermittently. She states there is a strong family history of atrial fibrillation And she has been told in the past that she has had an episode of atrial fibrillation but is not on any medication or anticoagulation for this. She felt her heart doing "gymnastics" earlier today and felt somewhat dizzy and short of breath however that has all completely resolved since she has been in our waiting room. She has not had any chest pain with this, and currently feels back to baseline. She states she has a number of allergies and would like to avoid all medication if possible. Review of Systems Constitutional: reports: Reviewed and negative Eyes: reports: Reviewed and negative Ears: reports: Reviewed and negative Nose: reports: Reviewed and negative Throat: reports: Reviewed and negative Cardiac: reports: Palpitations. denies: Chest pain / pressure, Pedal edema, Calf pain Respiratory: reports: Dyspnea. denies: Cough, Hemoptysis, Wheezing GI: reports: Reviewed and negative : reports: Reviewed and negative Skin: reports: Reviewed and negative Musculoskeletal: reports: Back pain Neurologic: reports: Reviewed and negative Psychiatric: reports: Reviewed and negative PD PAST MEDICAL HISTORY - Past Medical History Past Medical History: Yes Cardiovascular: Hypertension, High cholesterol, Other Respiratory: None Neuro: Peripheral neuropathy Endocrine/Autoimmune: Type 2 diabetes GI: None SALES SUPPORT SPECIALIST: None : Other HEENT: None Psych: Depression, Anxiety, Post traumatic stress disorder Musculoskeletal: Chronic back pain Derm: None - Past Surgical History Past Surgical History: Yes General: Cholecystectomy Ortho: Other /SALES SUPPORT SPECIALIST: section, Tubal ligation, Hysterectomy HEENT: Tonsil/Adenoidectomy - Present Medications Home Medications: Ambulatory Orders Medication Instructions Recorded Confirmed Insulin Lispro [Humalog Kwikpen 100 unit SQ GYM INSTRUCTOR 06/28/16 10/08/22 U-100] Atorvastatin [Lipitor] 10 mg PO DAILY 07/07/17 10/08/22 Cholecalciferol [Vitamin D3] 5,000 unit PO DAILY 10/30/18 10/08/22 Gabapentin 300 - 600 mg PO BID 10/30/18 10/08/22 Losartan Potassium 50 mg PO DAILY 10/30/18 10/08/22 - Allergies Allergies/Adverse Reactions: Allergies Allergy/AdvReac Type Severity Reaction Status Date / Time cefaclor [From Ceclor] Allergy Severe Anaphylaxis Verified 01/23/24 14:21 cephalexin monohydrate * Allergy Severe Anaphylaxis Verified 01/23/24 14:21 [From Keflex] hydrocodone bitartrate * Allergy Severe Anaphylaxis Verified 01/23/24 14:21 [From Vicodin] codeine Allergy Unknown Verified 01/23/24 14:21 Penicillins Allergy Unknown Verified 01/23/24 14:21 Tetanus Vaccines and Toxoid Allergy Respiratory Verified 01/23/24 14:21 [Tetanus Vaccines & Toxoid] hydromorphone HCl * AdvReac Unknown Verified 01/23/24 14:21 [From Dilaudid] tuberculin,PPD,multi-puncture AdvReac Edema Verified 01/23/24 14:21 - Social History Does the pt smoke?: No Smoking Status: Never smoker Does the pt drink ETOH?: No Does the pt have substance abuse?: No - Immunizations Immunizations are current?: No - POLST Patient has POLST: No PD ED PE NORMAL - Vitals Vital signs reviewed: Yes - General General: Alert and oriented X 3, No acute distress, Well developed/nourished - HEENT HEENT: Atraumatic, Moist mucous membranes, Pharynx benign - Cardiac Cardiac: RRR, No murmur, No gallop, No rub - Respiratory Respiratory: No respiratory distress, Clear bilaterally - Abdomen Abdomen: Normal bowel sounds, Soft, Non tender, Non distended - Back Back: No CVA TTP, No spinal TTP, Other (Scar in the lower back, no erythema. Nontender back exam.) - Derm Derm: Normal color, Warm and dry, No rash - Extremities Extremities: No deformity, No tenderness to palpate, Normal ROM s pain, No edema, No calf tenderness / cord Results - Vitals Vitals: Vital Signs - 24 hr 01/23/24 12:39 Temperature 36.4 C L Heart Rate 80 Respiratory 22 Rate Blood Pressure 162/76 H O2 Saturation 100 Oxygen O2 Source Room air - Labs Labs: Laboratory Tests 01/23/24 01/23/24 12:55 12:55 WBC 10.3 RBC 5.03 Hgb 14.2 Hct 44.6 MCV 88.7 MCH 28.2 MCHC 31.8 L RDW 13.8 Plt Count 311 MPV 10.2 Neut # (Auto) 5.6 Lymph # (Auto) 3.7 H [place] # (Auto) 0.8 Eos # (Auto) 0.1 Baso # (Auto) 0.1 Absolute Nucleated RBC 0.00 Nucleated RBC % 0.0 Sodium 141 Potassium 4.2 Chloride 104 Carbon Dioxide 31 Anion Gap 6.0 BUN 14 Creatinine 0.8 Estimated GFR (MDRD) 73 L Glucose 123 H Calcium 10.1 Total Bilirubin 0.3 AST 14 ALT 15 Alkaline Phosphatase 64 Troponin I High Sens < 2.3 L Total Protein 6.9 Albumin 4.0 Globulin 2.9 Albumin/Globulin Ratio 1.4 Lipase 31 - Rads (name of study) No standard instances Relevant Findings:: Final report received PD Medical Decision Making - ED course Complexity details: reviewed results, re-evaluated patient, considered differential, d/w patient ED course: This is a 63-year-old female who presented with some lower back pain, and a heart palpitations and mild shortness of breath though although symptoms have completely resolved by the time she arrived here. Patient currently well- appearing, nontoxic, afebrile, oxygenating well on room air. She acute appears in no acute distress. She has been in normal sinus rhythm here in the ED without any episodes of arrhythmia or atrial fibrillation, EKG shows normal sinus rhythm, no acute ischemic changes. Lab work is very reassuring, troponin is less than 2.3, CBC and CMP otherwise normal. Chest x-ray is negative. Did not imaging lower back as patient's pain is chronic, was somewhat worse the last couple of days though feels better now and the patient declines any medication for thisAnd she has no systemic symptoms related to this pain.. I have low suspicion for pulmonary embolus, dissection, ACS, based on Very reassuring physical exam. The patient was encouraged to follow-up with her primary doctor, consider outpatient Zio patch for these episodes of heart palpitations. I discussed return precautions in detail with the patient she is discharged home in stable condition. Departure - Departure Disposition: 01 Home, Self Care Clinical Impression: Heart palpitations Condition: Good Instructions: ED Palpitations Comments: Vilma, Your workup here today is reassuring, your EKG shows that you are in a normal sinus rhythm, and your lab work is all very good. Your chest x-ray is normal. It is possible that you were in an irregular rhythm earlier, or were feeling heart palpitations which can sometimes be felt even with a regular rhythm. I recommend that you follow-up with your primary doctor and discuss potentially getting an outpatient heart monitor called a Holter monitor or Zio patch to wear at home and try to catch 1 of these episodes. At this time, we do not need to start you on any new medication but if you develop a chest pain, shortness of breath or new concerns, please return to the ER. Forms: PCP List
[2024-01-23 14:48] VITALS: BP 148/74; O2SAT 99
== END 2024-01-23 14:41 | disposition home or self-care (01) ==
LOC: ED 12:28
DX: R00.2 Palpitations (principal); M54.50 Low back pain, unspecified; G89.29 Other chronic pain
CPT/HCPCS: 36415; 80053; 83690; 84484; 85025; 93005; 99284

== ENCOUNTER 2024-02-28 08:54 | Outpatient (CLI) | payer OTHER ==
[2024-02-28 09:50] LABS: THYROID STIMULATING HORMONE 1.44 uIU/mL (0.34-5.60)
== END 2024-02-28 08:55 | disposition home or self-care (01) ==
LOC: LAB 08:54
PROVIDERS: ATTEND Family Medicine
DX: R00.2 Palpitations (principal)
CPT/HCPCS: 36415; 84443

== ENCOUNTER 2024-02-29 09:07 | Outpatient (CLI) | payer OTHER ==
[2024-02-29 09:24] LABS: BASOPHILS # (AUTO) 0.1 10^3/uL (0.0-0.1); BASOPHILS % (AUTO) 0.8 %; EOSINOPHILS # (AUTO) 0.2 10^3/uL (0.0-0.7); EOSINOPHILS % (AUTO) 1.6 %; HCT - HEMATOCRIT 45.7 % (37.0-47.0); HGB - HEMOGLOBIN 14.2 g/dL (12.0-16.0); LYMPHOCYTES # (AUTO) 3.5 10^3/uL (1.5-3.5); LYMPHOCYTES % (AUTO) 36.7 %; MEAN CORPUSCULAR HEMOGLOBIN 27.8 pg (27.0-31.0); MEAN CORPUSCULAR HGB CONC 31.1 g/dL (32.0-36.0); MEAN CORPUSCULAR VOLUME 89.6 fL (81.0-99.0); MEAN PLATELET VOLUME 10.3 fL (7.9-10.8); MONOCYTES # (AUTO) 0.7 10^3/uL (0.0-1.0); MONOCYTES % (AUTO) 7.4 %; NEUTROPHILS % (AUTO) 53.2 %; PLT - PLATELET COUNT 296 10^3/uL (130-450); RED CELL DISTRIBUTION WIDTH 13.8 % (12.0-15.0); WHITE BLOOD COUNT 9.4 x10^3/uL (4.8-10.8)
[2024-02-29 09:40] LABS: ALBUMIN/GLOBULIN RATIO 1.4 (1.0-2.2); ALKALINE PHOSPHATASE 63 IU/L (42-121); ALT ALANINE AMINOTRANSFERASE 15 IU/L (10-60); AST ASPARTATE AMINOTRANSFERASE 15 IU/L (10-42); BILIRUBIN,TOTAL 0.5 mg/dL (0.2-1.0); BUN - BLOOD UREA NITROGEN 11 mg/dL (6-20); CALCIUM 10.1 mg/dL (8.5-10.3); CARBON DIOXIDE - CO2 32 mmol/L (21-32); CHLORIDE 104 mmol/L (101-111); CHOL/HDL RATIO 5.3 (<4.4); CHOLESTEROL 201 mg/dL; CREATININE 0.9 mg/dL (0.6-1.3); GFR - MDRD 64 (>89); GLUCOSE 107 mg/dL (74-104); HDL CHOLESTEROL 38 mg/dL; LDL CHOLESTEROL,CALCULATED 138 mg/dL; LDL/HDL RATIO 3.6 (<4.4); POTASSIUM 4.2 mmol/L (3.5-4.5); SODIUM 141 mmol/L (135-145); TOTAL PROTEIN 6.9 g/dL (6.4-8.9); TRIGLYCERIDES 127 mg/dL; VLDL CHOLESTEROL 25 mg/dL
[2024-02-29 09:47] LABS: ESTIMATED AVERAGE GLUCOSE 140 mg/dL (70-100); HEMOGLOBIN A1c% 6.5 % (4.27-6.07)
== END 2024-02-29 09:08 | disposition home or self-care (01) ==
LOC: LAB 09:07
PROVIDERS: ATTEND Internal Medicine
DX: E11.42 Type 2 diabetes mellitus with diabetic polyneuropathy (principal); E78.5 Hyperlipidemia, unspecified; I10 Essential (primary) hypertension
CPT/HCPCS: 36415; 80053; 80061; 83036; 83721; 85025